=== PATIENT | male | born 1940 | race African-American/Black ===

== ENCOUNTER → 2019-01-16 13:46 | Day surgery (SDC) | payer MEDICARE, OTHER ==
[~2019-01-16 13:46] MED LIST: Buffered Lidocaine 1% SYRIN* 1 ML/SYRINGE INTRADERM ONE; Lactated Ringers 1000 ML Bag* 1,000 ML IV SCH; Lidocaine 1% INJ* 10 MG/ML 30 ML SDV ONE; Midazolam* 1 MG/ML 2 ML VIAL (2 MG) ONE; Naloxone* 0.4 MG/ML 1 ML VIAL IV PRN; ceFAZolin 2 GM in NS PREMIX(*) 2 GM/100 ML BAG IVPB ONE; fentaNYL* 50 MCG/ML 2 ML VIAL (100 MCG VIAL) ONE; hydrALAZINE IV* 20 MG/ML VIAL ONE
--- NOTE | 2019-01-16 17:48 | OP ---
Operative Report - Blank - Operative Report Date of Operation: 01/16/19 Note: Operative note: Preoperative Dx: multiple myleoma Postoperative Dx: multiple myleoma Procedure: powerport placement via right cephalic vein cut down Anesthesia: local with sedation Surgeon: Kimberly Assist: Curtis STARKEY EBL: minimal Specimen: none Fluids: 400mL LR Drains: none Findings: dictated
[2019-01-16 20:19] VITALS: BP 140/80
--- NOTE | 2019-01-17 00:04 | OP ---
CC: KARINA * DATE OF OPERATION: 01/16/19 - SDS DATE OF : 38 SURGEON: Ricardo Harris MD. ENTERTAINMENT MANAGER: THANH Christopher student. ANESTHESIOLOGIST: Rc Messina DO ANESTHESIA: Local MAC. PRE-OP DIAGNOSIS: Multiple myeloma. POST-OP DIAGNOSIS: Multiple myeloma. OPERATIVE PROCEDURE: PowerPort placement via right cephalic vein cut down. ESTIMATED BLOOD LOSS: Minimal. IV FLUIDS: Crystalloids. SPECIMEN: None. DRAINS: None. COMPLICATIONS: None. COUNTS: Instrument, needle, and sponge counts were correct. DESCRIPTION OF PROCEDURE: The patient was brought to the operative room and placed on the table supine. Sequential compression devices were placed on both lower extremities. He received appropriate intravenous antibiotics. Time-out was performed. Local anesthetic was infiltrated into the skin and soft tissue for a right subclavian approach. The patient's neck was flexed and he was kyphotic, therefore, it was possible to approach the IJ on either side. I attempted to cannulate the right subclavian two times, and ultimately decided to abort this in favor of right cephalic vein cut down. Local anesthetic was infiltrated into the area of the deltopectoral triangle and transverse incision was created and the Weitlaner retractor was placed. Sharp and blunt dissection was used to dissect out the cephalic vein and this was isolated with a 3-0 silk proximally and distally. The vessel was ligated distally and then proximally a venotomy was created transversely with an 11- blade scalpel and the 8- Pashto PowerPort was advanced into the vein and the tip of the catheter was positioned at the atriocaval junction and this was confirmed under fluoroscopy. The incision was extended further medially and subcutaneous pocket was created with cautery. The catheter was cut to approximately 25 cm, connected to the port, which was placed into the pocket and sutured to the underlying muscle with a 2-0 Prolene. The port was accessed, it javon and flushed easily. It was flushed with saline. The pocket was then closed in two layers with 3-0 Vicryl for the subcutaneous tissues and 4-0 Monocryl for the skin. DermaFlex was applied. The patient tolerated the procedure well and transferred to Recovery stable. Postprocedural x-ray was completed and this showed the catheter to be in good position. No evidence of pneumothorax. [id number] #: [id number] MTDD
== END | disposition home or self-care (01) ==
LOC: OR 13:46
PROVIDERS: ATTEND Surgery
DX: C90.00 Multiple myeloma not having achieved remission (principal); I10 Essential (primary) hypertension; I25.10 Atherosclerotic heart disease of native coronary artery without angina pectoris; G20 Parkinson's disease
CPT/HCPCS: 71045; 76000; C1788; J0360; J0690; J1642; J2250; J3010

== ENCOUNTER 2021-08-06 10:49 | Inpatient (IN) ==
[2021-08-06] MEDS ORDERED: NS 0.9% 1000 ml BAG 1,000 ML IV ONE ×2 (11:05→15:36)
[2021-08-06 11:59] LABS: Hematocrit 45 % (42-52); Hemoglobin 15.3 g/dL (14.0-18.0); Mean Corpuscular HGB Conc 34 g/dL (31-36); Mean Corpuscular Hemoglobin 32 pg (27-31); Mean Corpuscular Volume 95 fL (80-94); Mean Platelet Volume 8.5 fL (7.4-10.4); Platelet Count 174 10^3/uL (150-450); Red Blood Count 4.72 10^6 /uL (4.18-5.48); Red Cell Distribution Width 14 % (10-15)
[2021-08-06 12:18] LABS: ALT 11 U/L (7-52); Albumin 4.5 g/dL (3.2-5.2); Albumin/Globulin Ratio 1.7 (1-3); Alkaline Phosphatase 94 U/L (35-149); Blood Urea Nitrogen 44 mg/dL (6-24); CO2 Carbon Dioxide 22 mmol/L (22-32); Calcium 9.5 mg/dL (8.6-10.3); Chloride 104 mmol/L (101-111); Globulin 2.6 g/dL (2-4); Glucose 104 mg/dL (70-100); Magnesium 2.3 mg/dL (1.9-2.7); Sodium 141 mmol/L (135-145); Total Protein 7.1 g/dL (6.4-8.9)
[2021-08-06] MEDS ORDERED: Piperacillin/Tazobac ADVAN 3.375 GM in NS 0.9% 100 ml BAG 100 ML IV ONE ×2 (12:27→17:17)
[2021-08-06] MEDS ORDERED: Iodixanol (CONTRAST) 320 MG/ML 100 ML SDV IV ONE (12:29)
[2021-08-06 12:35] LABS: Anion Gap 15 mmol/L (2-11); Troponin I 0.11 ng/mL (<0.03)
[2021-08-06 12:37] LABS: ABS Lymphocytes 0.2 10^3/ul (1.0-4.8); ABS Monocytes 0.5 10^3/ul (0-0.8); ABS Neutrophils 5.3 10^3/ul (1.5-7.7); Eosinophil % 0.1 %; Lymphocyte % 2.9 %; RBC Morphology Normal (Normal)
[2021-08-06 12:52] LABS: TSH Ultra Thyroid Stim Horm 5.53 mcIU/mL (0.34-5.60)
[2021-08-06] MEDS: NS 0.9% 1000 ml BAG 1,500 ML IV SCH ×2 (13:26→15:11)
[2021-08-06] MEDS ORDERED: Lactated Ringers 1000 ml BAG 1,000 ML IV ONE (15:51)
[2021-08-06] MEDS ORDERED: Rocuronium 50 mg VIAL 10 mg/ml 5 ml VIAL (50 mg) ONE ×2 (16:24→20:05)
[2021-08-06] MEDS ORDERED: Succinylcholine 200 mg VIAL 20 mg/ml 10 ml VIAL (200 mg) ONE (16:25)
[2021-08-06] MEDS ORDERED: Propofol 10 mg/ml 100 ML BTL 100 ML ONE (16:26)
[2021-08-06] MEDS ORDERED: Norepinephrine 16MCG/ML BAG NS 4,000 MCG/250 ML BAG IV ONE (16:28)
[2021-08-06] MEDS ORDERED: Etomidate 40 mg/20 ml (2 MG/ML) 20 ml VIAL (40 mg) ONE (16:48)
[2021-08-06] MEDS ORDERED: Artificial Tear OPHTH.OINT 3.5 GM BOTH EYES PRN (17:16)
[2021-08-06] MEDS ORDERED: Zosyn per Pharmacy NOTE FOLLOW UP SCH (18:00)
[2021-08-06] MEDS ORDERED: ceFAZolin 2 GM PREMIX 2 GM/50 ML BAG ONE (19:35)
[2021-08-06] MEDS ORDERED: Albumin Human 5% 12.5 GM/250 ML BTL IV SCH (20:00)
[2021-08-06] MEDS ORDERED: Cisatracurium 2 MG/ML MDV 5 ML ONE (20:05)
[2021-08-06] MEDS ORDERED: fentaNYL 100 mcg/2 ml 50 MCG/ML VIAL ONE (20:41)
[2021-08-06 20:45] LABS: PCO2 Arterial 42 mmHg (35-45); PO2 Arterial 103 mmHg (80-100)
[2021-08-06] MEDS ORDERED: Sodium Bicarbonate 8.4% VIAL 1 MEQ/ML 50 ml VIAL (50 meq) ONE (20:54)
[2021-08-06] MEDS ORDERED: Calcium CHLORIDE 10% SYRINGE 1 GM/10 ML ONE (20:56)
[2021-08-06] MEDS ORDERED: Acetaminophen IV 1 GM/100ML 100 ML IV ONE (21:39)
[2021-08-06 21:49] LABS: PCO2 Arterial 29 mmHg (35-45); PO2 Arterial 113 mmHg (80-100)
[2021-08-07] MEDS: Norepinephrine 16MCG/ML BAG NS 4,000 MCG/250 ML BAG IV SCH ×3 (00:19→12:35)
[2021-08-07] MEDS: Propofol 10 mg/ml 100 ML BTL 100 ML IV SCH ×2 (00:19→17:17)
[2021-08-07 00:29] LABS: Hematocrit 43 % (42-52); Hemoglobin 14.7 g/dL (14.0-18.0); Mean Corpuscular HGB Conc 34 g/dL (31-36); Mean Corpuscular Hemoglobin 32 pg (27-31); Mean Corpuscular Volume 94 fL (80-94); Mean Platelet Volume 8.1 fL (7.4-10.4); Platelet Count 114 10^3/uL (150-450); Red Cell Distribution Width 14 % (10-15); White Blood Count 0.9 10^3/uL (3.5-10.8)
[2021-08-07] MEDS: ZOSYN 3.375 GM Q8H per EXTENDED INFUSION IV SCH ×4 (00:42→17:17)
[2021-08-07] MEDS: Pantoprazole VIAL 40 MG VIAL IV SCH ×2 (00:42→08:13)
[2021-08-07 00:45] LABS: AST 52 U/L (13-39); Anion Gap 8 mmol/L (2-11); Blood Urea Nitrogen 48 mg/dL (6-24); CO2 Carbon Dioxide 20 mmol/L (22-32); Calcium 8.6 mg/dL (8.6-10.3); Chloride 111 mmol/L (101-111); Glucose 69 mg/dL (70-100); Potassium 3.2 mmol/L (3.5-5.0); Sodium 139 mmol/L (135-145); eGFR CKD-EPI 33.1 (>60)
[2021-08-07 00:51] LABS: Troponin I 0.09 ng/mL (<0.03)
[2021-08-07 01:05] LABS: ABS Lymphocytes 0.3 10^3/ul (1.0-4.8); ABS Neutrophils 0.6 10^3/ul (1.5-7.7); Lymphocyte % 27.1 %; Nucleated Red Blood Cells % 0.2
[2021-08-07] MEDS: LACTATED RINGERS 1000 ML BAG IV SCH ×2 (01:17→11:04)
[2021-08-07] MEDS ORDERED: Dextrose 50% Syringe 50 ml 25 GM/50 ML SYRINGE IV PUSH PRN (01:31)
[2021-08-07] MEDS ORDERED: Dextrose 50% Syringe 50 ml 25 GM/50 ML SYRINGE ONE (01:48)
[2021-08-07] MEDS: Chlorhexidine MOUTHWASH 0.12% 15 ML UDC TOPICAL SCH ×6 (01:49→20:26)
[2021-08-07 06:33] LABS: Hematocrit 40 % (42-52); Hemoglobin 14.1 g/dL (14.0-18.0); Mean Corpuscular HGB Conc 35 g/dL (31-36); Mean Corpuscular Hemoglobin 33 pg (27-31); Mean Corpuscular Volume 94 fL (80-94); Mean Platelet Volume 7.9 fL (7.4-10.4); Platelet Count 112 10^3/uL (150-450); Red Blood Count 4.29 10^6 /uL (4.18-5.48); Red Cell Distribution Width 14 % (10-15); White Blood Count 1.1 10^3/uL (3.5-10.8)
[2021-08-07 06:41] LABS: ABS Lymphocytes 0.2 10^3/ul (1.0-4.8); ABS Neutrophils 0.8 10^3/ul (1.5-7.7); Eosinophil % 0.9 %; Lymphocyte % 19.2 %; Nucleated Red Blood Cells % 0.1
[2021-08-07 06:48] LABS: Calcium 8.4 mg/dL (8.6-10.3); Magnesium 1.8 mg/dL (1.9-2.7); Phosphorus 3.7 mg/dL (2.5-5.0); eGFR CKD-EPI 37.9 (>60)
[2021-08-07] MEDS: KCL 20 MEQ/100 ML IVPREMIX 20 MEQ/100 ML BAG IV SCH ×2 (08:13→10:30)
[2021-08-07] MEDS: D5LR 1000 ml BAG 1,000 ML IV SCH ×3 (12:07→22:36)
[2021-08-07] MEDS ORDERED: Magnesium Sulfate 2 gm BAG 2 GM/50 ML BAG IVPB ONE (12:39)
[2021-08-07] MEDS: Acetaminophen IV 1 GM/100ML 100 ML IV PRN ×2 (12:40→18:22)
[2021-08-07] MEDS ORDERED: Acetaminophen IV 1 GM/100ML 100 ML IV ONE (12:51)
[2021-08-07] MEDS ORDERED: fentaNYL 100 mcg/2 ml 50 MCG/ML VIAL IV SLOW PU PRN (13:00)
[2021-08-07] MEDS: PHENYLEPHRINE DRIP IVPREMIX 50 MG/250 ML BAG IV SCH ×3 (13:52→22:47)
[2021-08-07] MEDS: Heparin 5000 UNITS/ML 1 mL VIAL SUBCUT SCH ×2 (14:31→20:26)
[2021-08-07 15:51] LABS: Potassium 3.9 mmol/L (3.5-5.0); eGFR CKD-EPI 41.2 (>60)
[2021-08-07] MEDS ORDERED: Norepinephrine 16MCG/ML BAG NS 4,000 MCG/250 ML BAG IV SCH (18:00)
[2021-08-08] MEDS: Chlorhexidine MOUTHWASH 0.12% 15 ML UDC TOPICAL SCH ×6 (00:20→20:31)
[2021-08-08] MEDS: Acetaminophen IV 1 GM/100ML 100 ML IV PRN ×3 (00:20→20:31)
[2021-08-08] MEDS: ZOSYN 3.375 GM Q8H per EXTENDED INFUSION IV SCH ×3 (01:23→17:38)
[2021-08-08] MEDS: PHENYLEPHRINE DRIP IVPREMIX 50 MG/250 ML BAG IV SCH ×3 (03:03→23:39)
[2021-08-08 04:31] LABS: Magnesium 2.4 mg/dL (1.9-2.7); Phosphorus 2.8 mg/dL (2.5-5.0); Potassium 3.7 mmol/L (3.5-5.0)
[2021-08-08] MEDS: Heparin 5000 UNITS/ML 1 mL VIAL SUBCUT SCH ×3 (06:15→20:32)
[2021-08-08] MEDS: D5LR 1000 ml BAG 1,000 ML IV SCH ×2 (08:19→17:38)
[2021-08-08] MEDS: Pantoprazole VIAL 40 MG VIAL IV SCH (08:19)
[2021-08-08 08:27] LABS: Hematocrit 36 % (42-52); Hemoglobin 12.6 g/dL (14.0-18.0); Mean Corpuscular HGB Conc 35 g/dL (31-36); Mean Corpuscular Hemoglobin 33 pg (27-31); Mean Corpuscular Volume 94 fL (80-94); Mean Platelet Volume 8.9 fL (7.4-10.4); Platelet Count 105 10^3/uL (150-450); Red Blood Count 3.85 10^6 /uL (4.18-5.48); Red Cell Distribution Width 14 % (10-15); White Blood Count 6.9 10^3/uL (3.5-10.8)
[2021-08-08 09:46] LABS: RBC Morphology Normal (Normal)
[2021-08-08 09:47] LABS: ABS Lymphocytes 0.2 10^3/ul (1.0-4.8); ABS Monocytes 0.1 10^3/ul (0-0.8); ABS Neutrophils 6.5 10^3/ul (1.5-7.7); Lymphocyte % 3.2 %; Nucleated Red Blood Cells % 0.1
[2021-08-09] MEDS: ZOSYN 3.375 GM Q8H per EXTENDED INFUSION IV SCH ×3 (02:07→18:00)
[2021-08-09] MEDS: D5LR 1000 ml BAG 1,000 ML IV SCH ×2 (03:27→14:35)
[2021-08-09 04:18] LABS: Blood Urea Nitrogen 35 mg/dL (6-24); CO2 Carbon Dioxide 23 mmol/L (22-32); Calcium 8.2 mg/dL (8.6-10.3); Glucose 96 mg/dL (70-100); Sodium 143 mmol/L (135-145)
[2021-08-09 04:23] LABS: Chloride 117 mmol/L (101-111)
[2021-08-09] MEDS: Heparin 5000 UNITS/ML 1 mL VIAL SUBCUT SCH ×3 (04:25→22:43)
[2021-08-09 05:05] LABS: Magnesium 2.2 mg/dL (1.9-2.7); Potassium Redraw 3.1 mmol/L (3.5-5.0)
[2021-08-09 06:01] LABS: Anion Gap 3 mmol/L (2-11)
[2021-08-09] MEDS ORDERED: Potassium Phosphate IV 15 MMOLE in NS 0.9% 250 ml 250 ML IVPB ONE (08:03)
[2021-08-09] MEDS ORDERED: KCL 20 MEQ/100 ML IVPREMIX 20 MEQ/100 ML BAG IV ONE (08:03)
[2021-08-09] MEDS: Pantoprazole VIAL 40 MG VIAL IV SCH (08:33)
[2021-08-09] MEDS: Acetaminophen IV 1 GM/100ML 100 ML IV PRN (11:08)
[2021-08-09] MEDS ORDERED: PHENYLEPHRINE DRIP IVPREMIX 50 MG/250 ML BAG IV SCH (18:29)
[2021-08-10] MEDS: ZOSYN 3.375 GM Q8H per EXTENDED INFUSION IV SCH ×3 (02:15→17:19)
[2021-08-10 04:40] LABS: Phosphorus 1.5 mg/dL (2.5-5.0); Potassium 3.2 mmol/L (3.5-5.0); eGFR CKD-EPI 70.1 (>60)
[2021-08-10] MEDS: Heparin 5000 UNITS/ML 1 mL VIAL SUBCUT SCH ×3 (06:32→22:13)
[2021-08-10] MEDS ORDERED: Potassium Chlor 20 meq TAB.ER PO ONE (06:39)
[2021-08-10] MEDS ORDERED: Magnesium Sulfate 2 gm BAG 2 GM/50 ML BAG IVPB ONE (07:31)
[2021-08-10] MEDS: KCL 20 MEQ/100 ML IVPREMIX 20 MEQ/100 ML BAG IV SCH ×2 (08:03→10:24)
[2021-08-10] MEDS: Pantoprazole VIAL 40 MG VIAL IV SCH (08:03)
[2021-08-10] MEDS ORDERED: Potassium Phosphate IV 15 MMOLE in NS 0.9% 250 ml 250 ML IVPB ONE (08:08)
[2021-08-10] MEDS: Acetaminophen IV 1 GM/100ML 100 ML IV PRN ×2 (14:48→19:37)
[2021-08-10] MEDS ORDERED: Morphine 2 MG/ML SYRINGE IV PRN (23:12)
[2021-08-11] MEDS: ZOSYN 3.375 GM Q8H per EXTENDED INFUSION IV SCH ×3 (02:02→18:20)
[2021-08-11 04:40] LABS: Hematocrit 33 % (42-52); Hemoglobin 11.6 g/dL (14.0-18.0); Mean Corpuscular HGB Conc 35 g/dL (31-36); Mean Corpuscular Hemoglobin 32 pg (27-31); Mean Corpuscular Volume 92 fL (80-94); Mean Platelet Volume 7.7 fL (7.4-10.4); Platelet Count 84 10^3/uL (150-450); Red Blood Count 3.62 10^6 /uL (4.18-5.48); Red Cell Distribution Width 14 % (10-15); White Blood Count 6.6 10^3/uL (3.5-10.8)
[2021-08-11 04:43] LABS: Calcium 8.1 mg/dL (8.6-10.3); Magnesium 2.4 mg/dL (1.9-2.7); Phosphorus 2.5 mg/dL (2.5-5.0); Potassium 3.9 mmol/L (3.5-5.0); eGFR CKD-EPI 59.8 (>60)
[2021-08-11] MEDS: Heparin 5000 UNITS/ML 1 mL VIAL SUBCUT SCH (06:25)
[2021-08-11] MEDS: Pantoprazole VIAL 40 MG VIAL IV SCH (07:53)
[2021-08-11] MEDS ORDERED: Dextran 70/Hypromellose Tears Eye Drops 15 ml BTL (for Artificials Tears) BOTH EYES PRN (08:58)
[2021-08-11] MEDS ORDERED: D5W 1/2 NS 1000 ml BAG 1,000 ML IV SCH (10:00)
[2021-08-11 12:10] LABS: Urine Appearance Cloudy; Urine Bilirubin Negative (Negative); Urine Blood 2+ (Negative); Urine Color Yellow; Urine Glucose Negative (Negative); Urine Ketones Negative (Negative); Urine Nitrite Negative (Negative); Urine Protein 1+(30 mg/dL) (Negative); Urine Specific Gravity 1.026 (1.002-1.030); Urine Urobilinogen Negative (Negative)
[2021-08-11 12:21] LABS: Urine Amorphous Crystals Present (Absent); Urine Bacteria 1+ (Absent); Urine Red Blood Cell 3+(>10/hpf) (Absent); Urine Squamous Epithelial Cell Present (Absent); Urine White Blood Cell 1+(6-10/hpf) (Absent)
[2021-08-11 18:07] LABS: PCO2 Arterial 30 mmHg (35-45)
[2021-08-11 18:14] LABS: PO2 Arterial 55 mmHg (80-100)
[2021-08-12] MEDS: ZOSYN 3.375 GM Q8H per EXTENDED INFUSION IV SCH ×3 (03:38→18:30)
[2021-08-12 05:55] LABS: Calcium 7.6 mg/dL (8.6-10.3); Potassium 3.9 mmol/L (3.5-5.0)
[2021-08-12 05:59] LABS: Hematocrit 32 % (42-52); Hemoglobin 11.2 g/dL (14.0-18.0); Mean Corpuscular HGB Conc 35 g/dL (31-36); Mean Corpuscular Hemoglobin 33 pg (27-31); Mean Corpuscular Volume 94 fL (80-94); Mean Platelet Volume 8.4 fL (7.4-10.4); Platelet Count 84 10^3/uL (150-450); Red Blood Count 3.44 10^6 /uL (4.18-5.48); Red Cell Distribution Width 14 % (10-15); White Blood Count 9.2 10^3/uL (3.5-10.8)
[2021-08-12 06:00] LABS: eGFR CKD-EPI 53.9 (>60)
[2021-08-12 07:04] LABS: ABS Lymphocytes 0.5 10^3/ul (1.0-4.8); ABS Monocytes 0.2 10^3/ul (0-0.8); ABS Neutrophils 8.4 10^3/ul (1.5-7.7); Eosinophil % 0.1 %; Lymphocyte % 5.4 %; Nucleated Red Blood Cells % 0.2
[2021-08-12] MEDS ORDERED: Aspirin EC 81 mg TAB.EC (enteric coated) PO SCH (09:00)
[2021-08-12] MEDS ORDERED: Furosemide 40 mg/4 ml IV VIAL IV SLOW PU ONE (09:09)
[2021-08-12] MEDS: Pantoprazole VIAL 40 MG VIAL IV SCH (10:00)
[2021-08-12] MEDS: Linezolid 600 MG IVPREMIX(*) 600 MG/300 ML BAG IVPB SCH ×2 (10:06→20:16)
[2021-08-12] MEDS: Latanoprost 0.005% 2.5 ml BTL BOTH EYES SCH (22:34)
[2021-08-13] MEDS: ZOSYN 3.375 GM Q8H per EXTENDED INFUSION IV SCH ×3 (01:59→18:08)
[2021-08-13 04:42] LABS: Calcium 7.7 mg/dL (8.6-10.3); Magnesium 2.2 mg/dL (1.9-2.7); Phosphorus 2.5 mg/dL (2.5-5.0); Potassium 3.6 mmol/L (3.5-5.0); eGFR CKD-EPI 47.3 (>60)
[2021-08-13 04:43] LABS: Hematocrit 30 % (42-52); Hemoglobin 10.3 g/dL (14.0-18.0); Mean Corpuscular HGB Conc 34 g/dL (31-36); Mean Corpuscular Hemoglobin 32 pg (27-31); Mean Corpuscular Volume 93 fL (80-94); Mean Platelet Volume 8.3 fL (7.4-10.4); Platelet Count 98 10^3/uL (150-450); Red Blood Count 3.22 10^6 /uL (4.18-5.48); Red Cell Distribution Width 14 % (10-15); White Blood Count 8.4 10^3/uL (3.5-10.8)
[2021-08-13] MEDS ORDERED: Potassium Chloride LIQUID 20 MEQ/15 ML LIQUID PO ONE (05:21)
[2021-08-13] MEDS: Pantoprazole VIAL 40 MG VIAL IV SCH (07:22)
[2021-08-13] MEDS ORDERED: KCL 10 MEQ/50 ML IVPREMIX 10 MEQ/50 ML BAG IV ONE (08:09)
[2021-08-13] MEDS: Acetaminophen IV 1 GM/100ML 100 ML IV PRN (08:22)
[2021-08-13] MEDS ORDERED: Furosemide 40 mg/4 ml IV VIAL IV SLOW PU ONE (10:00)
[2021-08-13] MEDS: ROTIGOTINE 2 MG/24 HR TOPICAL SCH (10:14)
[2021-08-13] MEDS: Linezolid 600 MG IVPREMIX(*) 600 MG/300 ML BAG IVPB SCH ×2 (10:53→21:31)
[2021-08-13] MEDS ORDERED: Succinylcholine 200 mg VIAL 20 mg/ml 10 ml VIAL (200 mg) ONE (11:24)
[2021-08-13] MEDS ORDERED: Propofol 10 mg/ml 100 ML BTL 100 ML ONE (11:24)
[2021-08-13] MEDS ORDERED: Propofol 10 MG/ML 20 ML BTL ONE (11:31)
[2021-08-13] MEDS ORDERED: Acetylcysteine INH SOL (RT) 200 MG/ML 4 ML VIAL INH ONE (11:57)
[2021-08-13] MEDS ORDERED: Propofol 10 mg/ml 100 ML BTL 100 ML IV SCH ×2 (14:00→14:03)
[2021-08-13] MEDS: Chlorhexidine MOUTHWASH 0.12% 15 ML UDC TOPICAL SCH ×3 (15:18→21:41)
[2021-08-13] MEDS: Latanoprost 0.005% 2.5 ml BTL BOTH EYES SCH (21:31)
[2021-08-14] MEDS: Chlorhexidine MOUTHWASH 0.12% 15 ML UDC TOPICAL SCH ×6 (03:42→22:21)
[2021-08-14 04:25] LABS: Hematocrit 28 % (42-52); Hemoglobin 9.8 g/dL (14.0-18.0); Mean Corpuscular HGB Conc 35 g/dL (31-36); Mean Corpuscular Hemoglobin 32 pg (27-31); Mean Corpuscular Volume 94 fL (80-94); Mean Platelet Volume 8.3 fL (7.4-10.4); Platelet Count 128 10^3/uL (150-450); Red Blood Count 3.02 10^6 /uL (4.18-5.48); Red Cell Distribution Width 14 % (10-15); White Blood Count 7.6 10^3/uL (3.5-10.8)
[2021-08-14 04:35] LABS: ABS Eosinophils 0.1 10^3/ul (0-0.6); ABS Lymphocytes 0.7 10^3/ul (1.0-4.8); ABS Monocytes 0.3 10^3/ul (0-0.8); ABS Neutrophils 6.5 10^3/ul (1.5-7.7); Eosinophil % 0.7 %; Lymphocyte % 9.5 %
[2021-08-14 04:42] LABS: Calcium 7.6 mg/dL (8.6-10.3); Magnesium 2.1 mg/dL (1.9-2.7); Potassium 3.4 mmol/L (3.5-5.0); eGFR CKD-EPI 45.8 (>60)
[2021-08-14] MEDS ORDERED: Potassium Chloride LIQUID 20 MEQ/15 ML LIQUID PO ONE (05:27)
[2021-08-14] MEDS: Pantoprazole VIAL 40 MG VIAL IV SCH (07:41)
[2021-08-14] MEDS: ROTIGOTINE 2 MG/24 HR TOPICAL SCH (07:42)
[2021-08-14] MEDS ORDERED: Dexmedetomidine 1,000 MCG in NS 0.9% 250 ml 240 ML IV SCH (09:00)
[2021-08-14] MEDS: Linezolid 600 MG IVPREMIX(*) 600 MG/300 ML BAG IVPB SCH ×2 (10:30→20:53)
[2021-08-14] MEDS: Acetaminophen IV 1 GM/100ML 100 ML IV PRN (17:13)
[2021-08-14] MEDS: Latanoprost 0.005% 2.5 ml BTL BOTH EYES SCH (20:19)
[2021-08-15] MEDS: Chlorhexidine MOUTHWASH 0.12% 15 ML UDC TOPICAL SCH ×6 (02:10→21:27)
[2021-08-15 04:13] LABS: Hematocrit 31 % (42-52); Hemoglobin 10.6 g/dL (14.0-18.0); Mean Corpuscular HGB Conc 34 g/dL (31-36); Mean Corpuscular Hemoglobin 32 pg (27-31); Mean Corpuscular Volume 93 fL (80-94); Mean Platelet Volume 8.3 fL (7.4-10.4); Platelet Count 187 10^3/uL (150-450); Red Blood Count 3.31 10^6 /uL (4.18-5.48); Red Cell Distribution Width 14 % (10-15); White Blood Count 9.2 10^3/uL (3.5-10.8)
[2021-08-15 04:28] LABS: Calcium 7.6 mg/dL (8.6-10.3); Magnesium 2.1 mg/dL (1.9-2.7); Phosphorus 2.4 mg/dL (2.5-5.0); Potassium 3.5 mmol/L (3.5-5.0); eGFR CKD-EPI 48.1 (>60)
[2021-08-15] MEDS ORDERED: KCL 20 MEQ/100 ML IVPREMIX 20 MEQ/100 ML BAG IV ONE (07:57)
[2021-08-15] MEDS: ROTIGOTINE 2 MG/24 HR TOPICAL SCH (08:18)
[2021-08-15] MEDS: Linezolid 600 MG IVPREMIX(*) 600 MG/300 ML BAG IVPB SCH ×2 (08:27→21:28)
[2021-08-15] MEDS: Pantoprazole VIAL 40 MG VIAL IV SCH (08:27)
[2021-08-15] MEDS ORDERED: Potassium Phosphate IV 10 MMOLE in NS 0.9% 250 ml 250 ML IVPB ONE (09:00)
[2021-08-15] MEDS: metroNIDAZOLE IV 500 MG/100ML 500 MG/100 ML BAG IVPB SCH ×2 (12:43→20:05)
[2021-08-15] MEDS: Latanoprost 0.005% 2.5 ml BTL BOTH EYES SCH (20:05)
[2021-08-16] MEDS: metroNIDAZOLE IV 500 MG/100ML 500 MG/100 ML BAG IVPB SCH ×3 (02:57→20:29)
[2021-08-16] MEDS: Chlorhexidine MOUTHWASH 0.12% 15 ML UDC TOPICAL SCH ×5 (02:57→20:29)
[2021-08-16 04:11] LABS: ABS Eosinophils 0.1 10^3/ul (0-0.6); ABS Lymphocytes 0.6 10^3/ul (1.0-4.8); ABS Monocytes 0.3 10^3/ul (0-0.8); ABS Neutrophils 5.6 10^3/ul (1.5-7.7); Eosinophil % 0.8 %; Hematocrit 29 % (42-52); Hemoglobin 9.9 g/dL (14.0-18.0); Lymphocyte % 9.1 %; Mean Corpuscular HGB Conc 34 g/dL (31-36); Mean Corpuscular Hemoglobin 32 pg (27-31); Mean Corpuscular Volume 93 fL (80-94); Mean Platelet Volume 8.1 fL (7.4-10.4); Platelet Count 200 10^3/uL (150-450); Red Blood Count 3.12 10^6 /uL (4.18-5.48); Red Cell Distribution Width 14 % (10-15); White Blood Count 6.5 10^3/uL (3.5-10.8)
[2021-08-16 04:27] LABS: Calcium 7.2 mg/dL (8.6-10.3); Magnesium 2.2 mg/dL (1.9-2.7); Potassium 3.5 mmol/L (3.5-5.0); eGFR CKD-EPI 44.4 (>60)
[2021-08-16] MEDS: ROTIGOTINE 2 MG/24 HR TOPICAL SCH (07:49)
[2021-08-16] MEDS: Pantoprazole VIAL 40 MG VIAL IV SCH (07:50)
[2021-08-16] MEDS: Linezolid 600 MG IVPREMIX(*) 600 MG/300 ML BAG IVPB SCH (08:42)
[2021-08-16] MEDS ORDERED: Lactated Ringers 1000 ml BAG 1,000 ML IV SCH (11:00)
[2021-08-16] MEDS: Latanoprost 0.005% 2.5 ml BTL BOTH EYES SCH (20:29)
[2021-08-17] MEDS: Chlorhexidine MOUTHWASH 0.12% 15 ML UDC TOPICAL SCH ×7 (00:36→23:00)
[2021-08-17] MEDS: metroNIDAZOLE IV 500 MG/100ML 500 MG/100 ML BAG IVPB SCH (03:31)
[2021-08-17 04:54] LABS: ABS Lymphocytes 0.6 10^3/ul (1.0-4.8); ABS Monocytes 0.3 10^3/ul (0-0.8); ABS Neutrophils 4.9 10^3/ul (1.5-7.7); Eosinophil % 0.8 %; Hematocrit 27 % (42-52); Hemoglobin 9.2 g/dL (14.0-18.0); Lymphocyte % 9.7 %; Mean Corpuscular HGB Conc 34 g/dL (31-36); Mean Corpuscular Hemoglobin 32 pg (27-31); Mean Corpuscular Volume 93 fL (80-94); Mean Platelet Volume 7.9 fL (7.4-10.4); Nucleated Red Blood Cells % 0.1; Platelet Count 202 10^3/uL (150-450); Red Blood Count 2.91 10^6 /uL (4.18-5.48); Red Cell Distribution Width 14 % (10-15); White Blood Count 5.8 10^3/uL (3.5-10.8)
[2021-08-17 05:32] LABS: Calcium 7.2 mg/dL (8.6-10.3); Magnesium 2.1 mg/dL (1.9-2.7); Phosphorus 2.7 mg/dL (2.5-5.0); Potassium 3.2 mmol/L (3.5-5.0); eGFR CKD-EPI 51.5 (>60)
[2021-08-17] MEDS: KCL 20 MEQ/100 ML IVPREMIX 20 MEQ/100 ML BAG IV SCH ×2 (06:15→08:21)
[2021-08-17] MEDS: Pantoprazole VIAL 40 MG VIAL IV SCH (08:21)
[2021-08-17] MEDS: ROTIGOTINE 2 MG/24 HR TOPICAL SCH (08:22)
[2021-08-17] MEDS: Latanoprost 0.005% 2.5 ml BTL BOTH EYES SCH (20:50)
[2021-08-18 04:20] LABS: ABS Lymphocytes 0.6 10^3/ul (1.0-4.8); ABS Monocytes 0.2 10^3/ul (0-0.8); ABS Neutrophils 4.2 10^3/ul (1.5-7.7); Eosinophil % 0.8 %; Hematocrit 27 % (42-52); Hemoglobin 9.5 g/dL (14.0-18.0); Lymphocyte % 11.4 %; Mean Corpuscular HGB Conc 35 g/dL (31-36); Mean Corpuscular Hemoglobin 33 pg (27-31); Mean Corpuscular Volume 92 fL (80-94); Mean Platelet Volume 7.4 fL (7.4-10.4); Nucleated Red Blood Cells % 0.1; Platelet Count 240 10^3/uL (150-450); Red Blood Count 2.93 10^6 /uL (4.18-5.48); Red Cell Distribution Width 14 % (10-15); White Blood Count 5.1 10^3/uL (3.5-10.8)
[2021-08-18] MEDS: Chlorhexidine MOUTHWASH 0.12% 15 ML UDC TOPICAL SCH ×6 (04:22→23:00)
[2021-08-18 04:36] LABS: Calcium 7.3 mg/dL (8.6-10.3); Magnesium 2.1 mg/dL (1.9-2.7); Phosphorus 2.1 mg/dL (2.5-5.0); eGFR CKD-EPI 59.8 (>60)
[2021-08-18] MEDS: KCL 20 MEQ/100 ML IVPREMIX 20 MEQ/100 ML BAG IV SCH ×3 (05:55→11:39)
[2021-08-18] MEDS: Pantoprazole VIAL 40 MG VIAL IV SCH (08:39)
[2021-08-18] MEDS: ROTIGOTINE 2 MG/24 HR TOPICAL SCH (08:46)
[2021-08-18] MEDS: Latanoprost 0.005% 2.5 ml BTL BOTH EYES SCH (20:15)
[2021-08-19] MEDS: Chlorhexidine MOUTHWASH 0.12% 15 ML UDC TOPICAL SCH ×3 (03:26→12:48)
[2021-08-19 04:23] LABS: ABS Lymphocytes 0.5 10^3/ul (1.0-4.8); ABS Monocytes 0.4 10^3/ul (0-0.8); ABS Neutrophils 4.5 10^3/ul (1.5-7.7); Eosinophil % 0.5 %; Hematocrit 27 % (42-52); Hemoglobin 9.4 g/dL (14.0-18.0); Mean Corpuscular HGB Conc 34 g/dL (31-36); Mean Corpuscular Hemoglobin 32 pg (27-31); Mean Corpuscular Volume 92 fL (80-94); Mean Platelet Volume 7.5 fL (7.4-10.4); Nucleated Red Blood Cells % 0.3; Platelet Count 291 10^3/uL (150-450); Red Blood Count 2.96 10^6 /uL (4.18-5.48); Red Cell Distribution Width 14 % (10-15); White Blood Count 5.4 10^3/uL (3.5-10.8)
[2021-08-19 04:40] LABS: Calcium 7.2 mg/dL (8.6-10.3); Phosphorus 1.5 mg/dL (2.5-5.0); Potassium 3.3 mmol/L (3.5-5.0); eGFR CKD-EPI 55.4 (>60)
[2021-08-19] MEDS: KCL 20 MEQ/100 ML IVPREMIX 20 MEQ/100 ML BAG IV SCH ×3 (06:26→11:35)
[2021-08-19] MEDS: Pantoprazole VIAL 40 MG VIAL IV SCH (07:32)
[2021-08-19] MEDS: ROTIGOTINE 2 MG/24 HR TOPICAL SCH (08:53)
[2021-08-19] MEDS ORDERED: Potassium Phosphate IV 15 MMOLE in NS 0.9% 250 ml 250 ML IVPB ONE (09:00)
[2021-08-19] MEDS: Latanoprost 0.005% 2.5 ml BTL BOTH EYES SCH (20:14)
[2021-08-20 05:23] LABS: Calcium 7.5 mg/dL (8.6-10.3); Potassium 3.7 mmol/L (3.5-5.0); eGFR CKD-EPI 72.5 (>60)
[2021-08-20] MEDS: Pantoprazole VIAL 40 MG VIAL IV SCH (09:25)
[2021-08-20] MEDS ORDERED: Potassium Phosphate IV 15 MMOLE in NS 0.9% 250 ml 250 ML IVPB ONE (10:24)
[2021-08-20] MEDS: Latanoprost 0.005% 2.5 ml BTL BOTH EYES SCH (20:53)
[2021-08-21 04:59] LABS: Calcium 7.7 mg/dL (8.6-10.3); Magnesium 1.9 mg/dL (1.9-2.7); Phosphorus 2.2 mg/dL (2.5-5.0); eGFR CKD-EPI 74.3 (>60)
[2021-08-21] MEDS ORDERED: Sodium Phosphate IV 15 MMOLE in NS 0.9% 250 ml 250 ML IV ONE (07:30)
[2021-08-21] MEDS: Pantoprazole VIAL 40 MG VIAL IV SCH (09:32)
[2021-08-21] MEDS: Latanoprost 0.005% 2.5 ml BTL BOTH EYES SCH (22:35)
[2021-08-22 06:13] LABS: Calcium 7.7 mg/dL (8.6-10.3); Magnesium 1.8 mg/dL (1.9-2.7); Phosphorus 2.7 mg/dL (2.5-5.0); Potassium 4.1 mmol/L (3.5-5.0); eGFR CKD-EPI 75.1 (>60)
[2021-08-22] MEDS: Pantoprazole VIAL 40 MG VIAL IV SCH (09:16)
[2021-08-22] MEDS: Latanoprost 0.005% 2.5 ml BTL BOTH EYES SCH (21:44)
[2021-08-23 05:28] LABS: Calcium 7.7 mg/dL (8.6-10.3); Magnesium 1.8 mg/dL (1.9-2.7); Phosphorus 2.7 mg/dL (2.5-5.0); Potassium 4.4 mmol/L (3.5-5.0); eGFR CKD-EPI 80.9 (>60)
[2021-08-23] MEDS ORDERED: Magnesium Sulfate IV 1GM/100ML 1 GM/100 ML BAG IV ONE ×2 (07:42→13:02)
[2021-08-23] MEDS: Pantoprazole VIAL 40 MG VIAL IV SCH (09:29)
[2021-08-23] MEDS: Latanoprost 0.005% 2.5 ml BTL BOTH EYES SCH (21:28)
[2021-08-24 05:29] LABS: Calcium 7.7 mg/dL (8.6-10.3); Phosphorus 2.6 mg/dL (2.5-5.0); Potassium 4.5 mmol/L (3.5-5.0); eGFR CKD-EPI 87.1 (>60)
[2021-08-24] MEDS: Pantoprazole VIAL 40 MG VIAL IV SCH (09:56)
[2021-08-24] MEDS: Latanoprost 0.005% 2.5 ml BTL BOTH EYES SCH (21:14)
[2021-08-25 05:58] LABS: ABS Eosinophils 0.1 10^3/ul (0-0.6); ABS Lymphocytes 0.9 10^3/ul (1.0-4.8); ABS Monocytes 0.6 10^3/ul (0-0.8); ABS Neutrophils 3.9 10^3/ul (1.5-7.7); Eosinophil % 2.7 %; Hematocrit 31 % (42-52); Hemoglobin 10.5 g/dL (14.0-18.0); Mean Corpuscular HGB Conc 34 g/dL (31-36); Mean Corpuscular Hemoglobin 31 pg (27-31); Mean Corpuscular Volume 93 fL (80-94); Mean Platelet Volume 6.9 fL (7.4-10.4); Nucleated Red Blood Cells % 0.2; Platelet Count 360 10^3/uL (150-450); Red Blood Count 3.36 10^6 /uL (4.18-5.48); Red Cell Distribution Width 14 % (10-15); White Blood Count 5.5 10^3/uL (3.5-10.8)
[2021-08-25 06:13] LABS: Magnesium 1.9 mg/dL (1.9-2.7); Potassium 4.6 mmol/L (3.5-5.0); eGFR CKD-EPI 87.4 (>60)
[2021-08-25] MEDS: Pantoprazole VIAL 40 MG VIAL IV SCH (10:11)
[2021-08-25] MEDS: Latanoprost 0.005% 2.5 ml BTL BOTH EYES SCH (21:10)
[2021-08-26] MEDS: Pantoprazole VIAL 40 MG VIAL IV SCH (09:26)
[2021-08-26] MEDS: Latanoprost 0.005% 2.5 ml BTL BOTH EYES SCH (21:18)
[2021-08-27] MEDS: Pantoprazole VIAL 40 MG VIAL IV SCH (08:40)
[2021-08-27] MEDS ORDERED: Iohexol 300 (CONTRAST) 10 ML SDV IV ONE (10:52)
[2021-08-27] MEDS: Latanoprost 0.005% 2.5 ml BTL BOTH EYES SCH (20:18)
[2021-08-28 05:56] LABS: ABS Eosinophils 0.1 10^3/ul (0-0.6); ABS Lymphocytes 0.5 10^3/ul (1.0-4.8); ABS Monocytes 0.5 10^3/ul (0-0.8); ABS Neutrophils 4.8 10^3/ul (1.5-7.7); Eosinophil % 1.5 %; Hematocrit 28 % (42-52); Hemoglobin 9.6 g/dL (14.0-18.0); Lymphocyte % 8.3 %; Mean Corpuscular HGB Conc 34 g/dL (31-36); Mean Corpuscular Hemoglobin 32 pg (27-31); Mean Corpuscular Volume 93 fL (80-94); Mean Platelet Volume 7.2 fL (7.4-10.4); Nucleated Red Blood Cells % 0.1; Platelet Count 273 10^3/uL (150-450); Red Blood Count 3.01 10^6 /uL (4.18-5.48); Red Cell Distribution Width 15 % (10-15); White Blood Count 5.9 10^3/uL (3.5-10.8)
[2021-08-28 06:13] LABS: Albumin 2.6 g/dL (3.2-5.2); Albumin/Globulin Ratio 0.9 (1-3); C Reactive Protein 3.68 mg/L (<8.01); Calcium 7.7 mg/dL (8.6-10.3); Globulin 2.9 g/dL (2-4); Magnesium 1.7 mg/dL (1.9-2.7); Potassium 4.3 mmol/L (3.5-5.0); Total Bilirubin 0.3 mg/dL (0.2-1.0); Total Protein 5.5 g/dL (6.4-8.9)
[2021-08-28] MEDS ORDERED: Magnesium Sulfate IV 3 GM in NS 0.9% 100 ml BAG 100 ML IVPB ONE (07:03)
[2021-08-28] MEDS ORDERED: Magnesium Sulfate 2 GM IV (Premix) IVPB ONE (08:00)
[2021-08-28] MEDS ORDERED: Magnesium Sulfate 1 GM IV 1 GM/100 ML BAG IV ONE (09:00)
[2021-08-28] MEDS: Pantoprazole VIAL 40 MG VIAL IV SCH (09:45)
[2021-08-28] MEDS: Latanoprost 0.005% 2.5 ml BTL BOTH EYES SCH (20:01)
[2021-08-29 05:13] LABS: ABS Eosinophils 0.1 10^3/ul (0-0.6); ABS Lymphocytes 0.6 10^3/ul (1.0-4.8); ABS Monocytes 0.6 10^3/ul (0-0.8); Hematocrit 28 % (42-52); Hemoglobin 9.8 g/dL (14.0-18.0); Lymphocyte % 10.2 %; Mean Corpuscular HGB Conc 35 g/dL (31-36); Mean Corpuscular Hemoglobin 32 pg (27-31); Mean Corpuscular Volume 93 fL (80-94); Mean Platelet Volume 7.1 fL (7.4-10.4); Platelet Count 258 10^3/uL (150-450); Red Blood Count 3.05 10^6 /uL (4.18-5.48); Red Cell Distribution Width 15 % (10-15); White Blood Count 6.3 10^3/uL (3.5-10.8)
[2021-08-29 05:29] LABS: Albumin 2.7 g/dL (3.2-5.2); Albumin/Globulin Ratio 0.9 (1-3); Calcium 7.6 mg/dL (8.6-10.3); Globulin 3.1 g/dL (2-4); Magnesium 2.2 mg/dL (1.9-2.7); Total Bilirubin 0.3 mg/dL (0.2-1.0); Total Protein 5.8 g/dL (6.4-8.9); eGFR CKD-EPI 90.1 (>60)
[2021-08-29] MEDS: Pantoprazole VIAL 40 MG VIAL IV SCH (09:33)
[2021-08-29] MEDS: Latanoprost 0.005% 2.5 ml BTL BOTH EYES SCH (19:58)
[2021-08-30] MEDS: Pantoprazole VIAL 40 MG VIAL IV SCH (07:57)
[2021-08-30] MEDS: Latanoprost 0.005% 2.5 ml BTL BOTH EYES SCH (20:58)
[2021-08-31 05:47] LABS: ABS Eosinophils 0.1 10^3/ul (0-0.6); ABS Lymphocytes 0.8 10^3/ul (1.0-4.8); ABS Monocytes 0.6 10^3/ul (0-0.8); Eosinophil % 1.7 %; Hematocrit 29 % (42-52); Hemoglobin 9.9 g/dL (14.0-18.0); Lymphocyte % 14.1 %; Mean Corpuscular HGB Conc 34 g/dL (31-36); Mean Corpuscular Hemoglobin 31 pg (27-31); Mean Corpuscular Volume 93 fL (80-94); Mean Platelet Volume 7.2 fL (7.4-10.4); Nucleated Red Blood Cells % 0.1; Platelet Count 219 10^3/uL (150-450); Red Blood Count 3.16 10^6 /uL (4.18-5.48); Red Cell Distribution Width 15 % (10-15); White Blood Count 5.5 10^3/uL (3.5-10.8)
[2021-08-31 05:56] LABS: INR 1.21 (0.86-1.15)
[2021-08-31 06:10] LABS: Albumin 2.7 g/dL (3.2-5.2); Albumin/Globulin Ratio 0.9 (1-3); Calcium 7.8 mg/dL (8.6-10.3); Magnesium 1.8 mg/dL (1.9-2.7); Total Bilirubin 0.3 mg/dL (0.2-1.0); Total Protein 5.7 g/dL (6.4-8.9); eGFR CKD-EPI 97.4 (>60)
[2021-08-31] MEDS ORDERED: Magnesium Sulfate 2 gm BAG 2 GM/50 ML BAG IVPB ONE (06:40)
[2021-08-31] MEDS: Pantoprazole VIAL 40 MG VIAL IV SCH (08:53)
[2021-08-31 13:15] LABS: Ferritin 69.4 ng/mL (24-336)
[2021-08-31] MEDS: Latanoprost 0.005% 2.5 ml BTL BOTH EYES SCH (21:53)
[2021-09-01 06:34] LABS: Albumin 2.8 g/dL (3.2-5.2); Albumin/Globulin Ratio 0.9 (1-3); Calcium 7.8 mg/dL (8.6-10.3); Globulin 3.1 g/dL (2-4); Potassium 4.3 mmol/L (3.5-5.0); Total Bilirubin 0.2 mg/dL (0.2-1.0); Total Protein 5.9 g/dL (6.4-8.9); eGFR CKD-EPI 97.4 (>60)
[2021-09-01 06:52] LABS: Hematocrit 30 % (42-52); Hemoglobin 10.2 g/dL (14.0-18.0); Mean Corpuscular HGB Conc 34 g/dL (31-36); Mean Corpuscular Hemoglobin 32 pg (27-31); Mean Corpuscular Volume 94 fL (80-94); Mean Platelet Volume 7.6 fL (7.4-10.4); Platelet Count 218 10^3/uL (150-450); Red Blood Count 3.21 10^6 /uL (4.18-5.48); Red Cell Distribution Width 15 % (10-15); White Blood Count 6.7 10^3/uL (3.5-10.8)
[2021-09-01] MEDS: Pantoprazole VIAL 40 MG VIAL IV SCH (10:23)
[2021-09-01] MEDS: Latanoprost 0.005% 2.5 ml BTL BOTH EYES SCH (20:01)
[2021-09-02] MEDS: Pantoprazole VIAL 40 MG VIAL IV SCH (08:56)
[2021-09-02 14:06] LABS: INR 1.19 (0.86-1.15)
[2021-09-02] MEDS: Latanoprost 0.005% 2.5 ml BTL BOTH EYES SCH (21:52)
[2021-09-03 05:24] LABS: ABS Eosinophils 0.1 10^3/ul (0-0.6); ABS Lymphocytes 0.7 10^3/ul (1.0-4.8); ABS Monocytes 0.5 10^3/ul (0-0.8); ABS Neutrophils 6.3 10^3/ul (1.5-7.7); Eosinophil % 1.3 %; Hematocrit 29 % (42-52); Hemoglobin 9.9 g/dL (14.0-18.0); Mean Corpuscular HGB Conc 34 g/dL (31-36); Mean Corpuscular Hemoglobin 32 pg (27-31); Mean Corpuscular Volume 93 fL (80-94); Mean Platelet Volume 7.2 fL (7.4-10.4); Platelet Count 185 10^3/uL (150-450); Red Blood Count 3.14 10^6 /uL (4.18-5.48); Red Cell Distribution Width 15 % (10-15); White Blood Count 7.6 10^3/uL (3.5-10.8)
[2021-09-03 05:39] LABS: Potassium 4.2 mmol/L (3.5-5.0); eGFR CKD-EPI 98.9 (>60)
[2021-09-03 07:49] LABS: Magnesium 1.8 mg/dL (1.9-2.7)
[2021-09-03] MEDS ORDERED: Magnesium Sulfate 2 gm BAG 2 GM/50 ML BAG IVPB ONE (07:54)
[2021-09-03] MEDS ORDERED: fentaNYL 100 mcg/2 ml 50 MCG/ML VIAL ONE (10:26)
[2021-09-03] MEDS ORDERED: ceFAZolin 1 GM ADVAN 1 GM ADDV.VIAL IVPB ONE (11:15)
[2021-09-03] MEDS ORDERED: Lactated Ringers 1000 ml BAG 1,000 ML IV SCH (14:00)
[2021-09-03] MEDS: Latanoprost 0.005% 2.5 ml BTL BOTH EYES SCH (21:40)
[2021-09-04] MEDS: Latanoprost 0.005% 2.5 ml BTL BOTH EYES SCH (22:16)
[2021-09-05 06:28] LABS: Hematocrit 30 % (42-52); Hemoglobin 10.1 g/dL (14.0-18.0); Mean Corpuscular HGB Conc 34 g/dL (31-36); Mean Corpuscular Hemoglobin 31 pg (27-31); Mean Corpuscular Volume 93 fL (80-94); Mean Platelet Volume 7.5 fL (7.4-10.4); Platelet Count 181 10^3/uL (150-450); Red Blood Count 3.25 10^6 /uL (4.18-5.48); Red Cell Distribution Width 15 % (10-15); White Blood Count 5.2 10^3/uL (3.5-10.8)
[2021-09-05 06:44] LABS: Magnesium 1.8 mg/dL (1.9-2.7); Phosphorus 2.3 mg/dL (2.5-5.0); Potassium 4.2 mmol/L (3.5-5.0); eGFR CKD-EPI 98.9 (>60)
[2021-09-05] MEDS: Potassium & Sodium Phos 250 mg = 1 PACKET G TUBE SCH ×2 (09:51→21:04)
[2021-09-05] MEDS: Latanoprost 0.005% 2.5 ml BTL BOTH EYES SCH (21:04)
[2021-09-06 06:44] LABS: Calcium 7.8 mg/dL (8.6-10.3); Magnesium 1.7 mg/dL (1.9-2.7); Potassium 4.3 mmol/L (3.5-5.0); eGFR CKD-EPI 97.4 (>60)
[2021-09-06 07:37] LABS: ABS Lymphocytes 0.5 10^3/ul (1.0-4.8); ABS Monocytes 0.4 10^3/ul (0-0.8); ABS Neutrophils 2.9 10^3/ul (1.5-7.7); Eosinophil % 0.2 %; Hematocrit 27 % (42-52); Hemoglobin 9.1 g/dL (14.0-18.0); Lymphocyte % 12.8 %; Mean Corpuscular HGB Conc 34 g/dL (31-36); Mean Corpuscular Hemoglobin 32 pg (27-31); Mean Corpuscular Volume 93 fL (80-94); Mean Platelet Volume 6.8 fL (7.4-10.4); Platelet Count 156 10^3/uL (150-450); Red Blood Count 2.89 10^6 /uL (4.18-5.48); Red Cell Distribution Width 15 % (10-15); White Blood Count 3.7 10^3/uL (3.5-10.8)
[2021-09-06] MEDS: Potassium & Sodium Phos 250 mg = 1 PACKET G TUBE SCH ×3 (08:42→20:54)
[2021-09-06] MEDS ORDERED: Magnesium Sulfate 2 gm BAG 2 GM/50 ML BAG IVPB ONE (11:39)
[2021-09-06] MEDS: Lansoprazole SUSP ORALSYR 3 MG/ML PO SCH (15:59)
[2021-09-06] MEDS: Latanoprost 0.005% 2.5 ml BTL BOTH EYES SCH (20:59)
[2021-09-07 05:43] LABS: ABS Lymphocytes 0.8 10^3/ul (1.0-4.8); ABS Monocytes 0.6 10^3/ul (0-0.8); ABS Neutrophils 3.6 10^3/ul (1.5-7.7); Eosinophil % 0.6 %; Hematocrit 30 % (42-52); Hemoglobin 10.3 g/dL (14.0-18.0); Lymphocyte % 15.4 %; Mean Corpuscular HGB Conc 35 g/dL (31-36); Mean Corpuscular Hemoglobin 32 pg (27-31); Mean Corpuscular Volume 92 fL (80-94); Nucleated Red Blood Cells % 0.1; Platelet Count 165 10^3/uL (150-450); Red Blood Count 3.24 10^6 /uL (4.18-5.48); Red Cell Distribution Width 15 % (10-15); White Blood Count 5.1 10^3/uL (3.5-10.8)
[2021-09-07 06:00] LABS: Anion Gap 5 mmol/L (2-11); Blood Urea Nitrogen 17 mg/dL (6-24); CO2 Carbon Dioxide 28 mmol/L (22-32); Chloride 102 mmol/L (101-111); Glucose 136 mg/dL (70-100); Magnesium 2.1 mg/dL (1.9-2.7); Potassium 4.4 mmol/L (3.5-5.0); Sodium 135 mmol/L (135-145); eGFR CKD-EPI 92.4 (>60)
[2021-09-07 07:59] LABS: ALT 32 U/L (7-52); AST 33 U/L (13-39); Albumin 2.8 g/dL (3.2-5.2); Albumin/Globulin Ratio 0.9 (1-3); Alkaline Phosphatase 111 U/L (35-149); Globulin 3.1 g/dL (2-4); Total Protein 5.9 g/dL (6.4-8.9)
[2021-09-07] MEDS: Potassium & Sodium Phos 250 mg = 1 PACKET G TUBE SCH ×3 (11:38→22:06)
[2021-09-07] MEDS: Lansoprazole SUSP ORALSYR 3 MG/ML PO SCH (11:40)
[2021-09-07 20:09] LABS: Urine Appearance Cloudy; Urine Bilirubin Negative (Negative); Urine Blood Negative (Negative); Urine Color Yellow; Urine Glucose Negative (Negative); Urine Ketones Negative (Negative); Urine Nitrite Negative (Negative); Urine Protein Negative (Negative); Urine Specific Gravity 1.021 (1.002-1.030); Urine Urobilinogen Negative (Negative)
[2021-09-07 20:27] LABS: Urine Bacteria Absent (Absent); Urine Red Blood Cell Absent (Absent); Urine White Blood Cell 2+(11-20/hpf) (Absent)
[2021-09-07] MEDS: Latanoprost 0.005% 2.5 ml BTL BOTH EYES SCH (22:07)
[2021-09-08 06:34] LABS: Hematocrit 30 % (42-52); Hemoglobin 9.8 g/dL (14.0-18.0); Mean Corpuscular HGB Conc 33 g/dL (31-36); Mean Corpuscular Hemoglobin 30 pg (27-31); Mean Corpuscular Volume 92 fL (80-94); Mean Platelet Volume 7.1 fL (7.4-10.4); Platelet Count 161 10^3/uL (150-450); Red Blood Count 3.24 10^6 /uL (4.18-5.48); Red Cell Distribution Width 15 % (10-15); White Blood Count 5.2 10^3/uL (3.5-10.8)
[2021-09-08 06:48] LABS: Potassium 4.3 mmol/L (3.5-5.0); eGFR CKD-EPI 95.9 (>60)
[2021-09-08 06:54] LABS: Rapid COVID-19 Molecular Undetected (Undetected)
[2021-09-08] MEDS: Lansoprazole SUSP ORALSYR 3 MG/ML PO SCH (11:54)
[2021-09-08] MEDS: Potassium & Sodium Phos 250 mg = 1 PACKET G TUBE SCH ×3 (11:54→20:31)
[2021-09-08] MEDS: Latanoprost 0.005% 2.5 ml BTL BOTH EYES SCH (20:31)
[2021-09-09 05:58] LABS: Hematocrit 29 % (42-52); Hemoglobin 9.8 g/dL (14.0-18.0); Mean Corpuscular HGB Conc 34 g/dL (31-36); Mean Corpuscular Hemoglobin 31 pg (27-31); Mean Corpuscular Volume 92 fL (80-94); Mean Platelet Volume 7.5 fL (7.4-10.4); Platelet Count 161 10^3/uL (150-450); Red Blood Count 3.18 10^6 /uL (4.18-5.48); Red Cell Distribution Width 15 % (10-15); White Blood Count 4.9 10^3/uL (3.5-10.8)
[2021-09-09 06:13] LABS: Calcium 7.9 mg/dL (8.6-10.3); Magnesium 1.9 mg/dL (1.9-2.7); Potassium 4.1 mmol/L (3.5-5.0)
[2021-09-09 06:18] LABS: eGFR CKD-EPI 97.9 (>60)
[2021-09-09] MEDS: Potassium & Sodium Phos 250 mg = 1 PACKET G TUBE SCH ×3 (10:21→20:59)
[2021-09-09] MEDS: Lansoprazole SUSP ORALSYR 3 MG/ML PO SCH (14:49)
[2021-09-09] MEDS: Latanoprost 0.005% 2.5 ml BTL BOTH EYES SCH (21:01)
[2021-09-10 08:15] VITALS: BP 126/65
[2021-09-10] MEDS: Lansoprazole SUSP ORALSYR 3 MG/ML PO SCH (09:48)
[2021-09-10] MEDS: Potassium & Sodium Phos 250 mg = 1 PACKET G TUBE SCH (09:48)
[2021-09-10 10:57] LABS: Rapid COVID-19 Molecular Undetected (Undetected)
== END 2021-09-10 14:00 | DRG 853 ==
LOC: ED 10:49 → EDHOLD 16:14 → SUATTDRO 16:14 → ICU 16:50 → SSU 08-21 17:25
PROVIDERS: ADMIT Nurse Practitioner Adult Health; ATTEND Internal Medicine

== ENCOUNTER 2022-01-27 07:07 | Inpatient (IN) ==
[2022-01-27] MEDS ORDERED: Norepinephrine 16MCG/ML BAG NS 4,000 MCG/250 ML BAG IV ONE (07:16)
[2022-01-27] MEDS: Lactated Ringers 1000 ml BAG 1,000 ML IV ONE ×2 (07:20→07:30)
[2022-01-27] MEDS ORDERED: Piperacillin/Tazobac ADVAN 3.375 GM in NS 0.9% 100 ml BAG 100 ML IV ONE (07:33)
[2022-01-27] MEDS ORDERED: Vancomycin 1,000 MG in NS 0.9% 250 ml 250 ML IVPB ONE (07:33)
[2022-01-27 07:54] LABS: Hematocrit 35 % (42-52); Mean Corpuscular HGB Conc 32 g/dL (31-36); Mean Corpuscular Hemoglobin 26 pg (27-31); Mean Corpuscular Volume 81 fL (80-94); Red Blood Count 4.29 10^6 /uL (4.18-5.48); Red Cell Distribution Width 22 % (10-15); White Blood Count 2.5 10^3/uL (3.5-10.8)
[2022-01-27 08:01] LABS: INR 1.2 (0.89-1.11)
[2022-01-27 08:16] LABS: Ammonia 24 mcmol/L (16-53)
[2022-01-27 08:21] LABS: BNP 112 pg/mL (<=100)
[2022-01-27 08:42] LABS: Albumin 2.8 g/dL (3.2-5.2); Albumin/Globulin Ratio 1.1 (1-3); C Reactive Protein 9.65 mg/L (<8.01); Calcium 8.6 mg/dL (8.6-10.3); Globulin 2.6 g/dL (2-4); Potassium 3.3 mmol/L (3.5-5.0); Total Bilirubin 0.7 mg/dL (0.2-1.0); Total Protein 5.4 g/dL (6.4-8.9); eGFR CKD-EPI 44.1 (>60)
[2022-01-27 08:48] LABS: Urine Appearance Clear; Urine Specific Gravity 1.011 (1.002-1.030)
[2022-01-27 08:49] LABS: Urine Color Red
[2022-01-27] MEDS ORDERED: Norepinephrine 16MCG/ML BAG NS 4,000 MCG/250 ML BAG IV SCH (09:00)
[2022-01-27 09:12] LABS: ABS Lymphocytes 0.1 10^3/ul (1.0-4.8); ABS Neutrophils 2.4 10^3/ul (1.5-7.7); Eosinophil % 0.4 %; Lymphocyte % 2.7 %; Mean Platelet Volume 8.1 fL (7.4-10.4); Nucleated Red Blood Cells % 0.9; Platelet Count 87 10^3/uL (150-450)
[2022-01-27 09:13] LABS: Anisocytosis 2+; Polychromasia 1+
[2022-01-27 09:18] LABS: Urine Bacteria Absent (Absent); Urine Red Blood Cell 3+(>10/hpf) (Absent); Urine White Blood Cell 3+(>20/hpf) (Absent)
[2022-01-27] MEDS: Norepinephrine 16MCG/ML BAGD5W 4,000 MCG/250 ML BAG IV SCH ×3 (09:38→13:46)
[2022-01-27 09:57] LABS: High Sensitivity Troponin 1 Hr 596 pg/mL (<20)
[2022-01-27] MEDS ORDERED: PHENYLEPHRINE DRIP IVPREMIX 50 MG/250 ML BAG IV SCH (11:00)
[2022-01-27] MEDS ORDERED: Enoxaparin 40 MG/0.4 ML SYR SUBCUT SCH (11:00)
[2022-01-27] MEDS ORDERED: Lactated Ringers 1000 ml BAG 1,000 ML IV SCH ×2 (11:00→16:40)
[2022-01-27] MEDS ORDERED: metroNIDAZOLE IV 500 MG/100ML 500 MG/100 ML BAG IVPB SCH (11:00)
[2022-01-27] MEDS ORDERED: metroNIDAZOLE IV 500 MG/100ML - ED ONCE IVPB ONE (11:00)
[2022-01-27] MEDS ORDERED: Vancomycin per Pharmacy 1 EA NOTE FOLLOW UP SCH ×2 (12:00→12:05)
[2022-01-27 12:36] LABS: Magnesium 1.7 mg/dL (1.9-2.7)
[2022-01-27] MEDS: KCL 20 MEQ/100 ML IVPREMIX 20 MEQ/100 ML BAG IV SCH ×2 (12:56→15:03)
[2022-01-27] MEDS ORDERED: Magnesium Sulfate 2 gm BAG 2 GM/50 ML BAG IV ONE (14:00)
[2022-01-27] MEDS ORDERED: Hydrocortisone INJ 100 MG/2ML 2 ML VIAL IV ONE (14:00)
[2022-01-27] MEDS: Pantoprazole VIAL 40 MG VIAL IV SCH (14:07)
[2022-01-27] MEDS ORDERED: Lactated Ringers 1000 ml BAG 500 ML IV SCH (15:00)
[2022-01-27] MEDS ORDERED: Magnesium Sulfate 1 GM IV 1 GM/100 ML BAG IV ONE (15:00)
[2022-01-27] MEDS: Vasopressin 100 UNITS in D5W 250 ml BAG 245 ML IV SCH (15:20)
[2022-01-27] MEDS: Norepinephrine *QUAD STRENGTH* 16 mg/250 mL NS per protocol IV SCH ×2 (17:01→22:42)
[2022-01-27] MEDS ORDERED: Sodium Bicarbonate 8.4% SYR 50 ml SYRINGE IV ONE (17:37)
[2022-01-27] MEDS ORDERED: NORMOSOL-R pH 7.4 1000 mL BAG 1,000 ML IV SCH (18:00)
[2022-01-27] MEDS ORDERED: Vasopressin 100 UNITS in D5W 250 ml BAG 245 ML IV SCH (19:02)
[2022-01-27] MEDS ORDERED: Zosyn per Pharmacy NOTE FOLLOW UP PRN (20:49)
[2022-01-27] MEDS ORDERED: cefTRIAXone 2 gm/50 mL D5W 2 GM/50 ML BAG IV SCH (21:00)
[2022-01-27] MEDS ORDERED: ZOSYN 3.375 GM x ONE DOSE over 30 miuntes IV (21:00)
[2022-01-27] MEDS ORDERED: Phenylephrine IV 10 MG/ML 1 ml VIAL ONE (21:52)
[2022-01-27] MEDS ORDERED: Phenylephrine DRIP 0.2 MG/ML in NS 0.9% 250 ML (IVPREMIX) IV SCH (22:15)
[2022-01-27 22:36] LABS: PCO2 Arterial 25 mmHg (35-45); PO2 Arterial 81 mmHg (80-100)
[2022-01-27] MEDS: Hydrocortisone INJ 100 MG/2ML 2 ML VIAL IV SCH (22:38)
[2022-01-27] MEDS: Latanoprost 0.005% 2.5 ml BTL BOTH EYES SCH (22:38)
[2022-01-27] MEDS: Acetaminophen IV 1 GM/100ML 100 ML IV PRN (22:55)
[2022-01-28] MEDS ORDERED: Amikacin IV 500 MG/2 ML VIAL IVPB ONE ×2 (00:04)
[2022-01-28] MEDS ORDERED: AMIKACIN IVPB ONE (01:00)
[2022-01-28] MEDS ORDERED: NS 0.9% IVPB ONE (01:00)
[2022-01-28 01:09] LABS: PCO2 Arterial 25 mmHg (35-45); PO2 Arterial 81 mmHg (80-100)
[2022-01-28 01:30] LABS: Calcium 7.8 mg/dL (8.6-10.3); Potassium 4.4 mmol/L (3.5-5.0); eGFR CKD-EPI 28.6 (>60)
[2022-01-28] MEDS ORDERED: ZOSYN 3.375 GM Q8H per EXTENDED INFUSION IV SCH (01:30)
[2022-01-28 03:33] LABS: Phosphorus 1.9 mg/dL (2.5-5.0)
[2022-01-28] MEDS: Norepinephrine *QUAD STRENGTH* 16 mg/250 mL NS per protocol IV SCH ×3 (04:45→18:23)
[2022-01-28] MEDS: Hydrocortisone INJ 100 MG/2ML 2 ML VIAL IV SCH ×3 (05:53→21:35)
[2022-01-28] MEDS: PHENYLEPHRINE DRIP IVPREMIX 50 MG/250 ML BAG IV SCH ×5 (06:21→22:10)
[2022-01-28 06:25] LABS: Albumin 2.7 g/dL (3.2-5.2); Calcium 7.7 mg/dL (8.6-10.3); Globulin 2.6 g/dL (2-4); Magnesium 2.4 mg/dL (1.9-2.7); Phosphorus 3.7 mg/dL (2.5-5.0); Potassium 4.8 mmol/L (3.5-5.0); Total Protein 5.3 g/dL (6.4-8.9); eGFR CKD-EPI 23.8 (>60)
[2022-01-28] MEDS ORDERED: Vancomycin 1000 MG in NS 0.9% 250 ML IVPB SCH (06:30)
[2022-01-28 06:46] LABS: Hematocrit 39 % (42-52); Hemoglobin 12.7 g/dL (14.0-18.0); Mean Corpuscular HGB Conc 33 g/dL (31-36); Mean Corpuscular Hemoglobin 25 pg (27-31); Mean Corpuscular Volume 78 fL (80-94); Mean Platelet Volume 8.3 fL (7.4-10.4); Platelet Count 54 10^3/uL (150-450); Red Blood Count 5.03 10^6 /uL (4.18-5.48); Red Cell Distribution Width 23 % (10-15); White Blood Count 16.8 10^3/uL (3.5-10.8)
[2022-01-28 07:53] LABS: C Reactive Protein 116.77 mg/L (<8.01)
[2022-01-28] MEDS: Dextrose 50% Syringe 50 ml 25 GM/50 ML SYRINGE IV PUSH PRN ×2 (08:40→16:19)
[2022-01-28] MEDS: Pantoprazole VIAL 40 MG VIAL IV SCH (08:42)
[2022-01-28] MEDS: Heparin 5000 UNITS/ML 1 mL VIAL SUBCUT SCH ×2 (08:43→21:35)
[2022-01-28 08:50] LABS: Hypochromasia 1+; Microcytosis 1+; Polychromasia 1+
[2022-01-28 08:58] LABS: ABS Eosinophils 0.1 10^3/ul (0-0.6); ABS Lymphocytes 0.1 10^3/ul (1.0-4.8); ABS Monocytes 0.1 10^3/ul (0-0.8); ABS Neutrophils 16.5 10^3/ul (1.5-7.7); ABS Nucleated RBC 0.1 10^3/ul; Nucleated Red Blood Cells % 0.3
[2022-01-28] MEDS: cefTRIAXone 1 gm/50 mL D5W 1 GM/50 ML BAG IV SCH ×2 (10:47→21:34)
[2022-01-28 11:11] LABS: Hematocrit 40 % (42-52); Hemoglobin 12.7 g/dL (14.0-18.0); Mean Corpuscular HGB Conc 32 g/dL (31-36); Mean Corpuscular Hemoglobin 25 pg (27-31); Mean Corpuscular Volume 78 fL (80-94); Mean Platelet Volume 8.5 fL (7.4-10.4); Platelet Count 48 10^3/uL (150-450); Red Blood Count 5.15 10^6 /uL (4.18-5.48); Red Cell Distribution Width 23 % (10-15); White Blood Count 19.6 10^3/uL (3.5-10.8)
[2022-01-28 11:13] LABS: INR 2.03 (0.89-1.11)
[2022-01-28 11:47] LABS: ABS Lymphocytes 0.1 10^3/ul (1.0-4.8); ABS Monocytes 0.2 10^3/ul (0-0.8); ABS Neutrophils 19.2 10^3/ul (1.5-7.7); Anisocytosis 1+; Eosinophil % 0.3 %; Lymphocyte % 0.6 %; Microcytosis 2+; Nucleated Red Blood Cells % 0.2
[2022-01-28 11:57] LABS: eGFR CKD-EPI 21.9 (>60)
[2022-01-28] MEDS ORDERED: Vasopressin 100 UNITS in D5W 250 ml BAG 245 ML IV SCH (12:44)
[2022-01-28] MEDS: Vasopressin 100 UNITS in D5W 250 ml BAG 245 ML IV SCH (13:05)
[2022-01-28] MEDS ORDERED: ZOSYN 3.375 GM Q12H per EXTENDED INFUSION IV SCH (15:00)
[2022-01-28] MEDS ORDERED: D5W 1/2 NS 1000 ml BAG 1,000 ML IV SCH ×2 (17:00→17:03)
[2022-01-28 17:55] LABS: PCO2 Arterial 22 mmHg (35-45); PO2 Arterial 73 mmHg (80-100)
[2022-01-28] MEDS: Latanoprost 0.005% 2.5 ml BTL BOTH EYES SCH (21:35)
[2022-01-29] MEDS: Norepinephrine *QUAD STRENGTH* 16 mg/250 mL NS per protocol IV SCH ×4 (00:31→20:05)
[2022-01-29] MEDS: PHENYLEPHRINE DRIP IVPREMIX 50 MG/250 ML BAG IV SCH ×3 (02:40→12:03)
[2022-01-29] MEDS ORDERED: Vancomycin Trough Check NOTE FOLLOW UP ONE (05:30)
[2022-01-29 05:46] LABS: Hematocrit 42 % (42-52); Hemoglobin 13.4 g/dL (14.0-18.0); Mean Corpuscular HGB Conc 32 g/dL (31-36); Mean Corpuscular Hemoglobin 25 pg (27-31); Mean Corpuscular Volume 78 fL (80-94); Red Cell Distribution Width 23 % (10-15)
[2022-01-29] MEDS: Hydrocortisone INJ 100 MG/2ML 2 ML VIAL IV SCH ×3 (06:44→22:39)
[2022-01-29 06:46] LABS: Magnesium 2.3 mg/dL (1.9-2.7)
[2022-01-29 06:52] LABS: Phosphorus 6.1 mg/dL (2.5-5.0); eGFR CKD-EPI 15.1 (>60)
[2022-01-29 06:59] LABS: Calcium 6.4 mg/dL (8.6-10.3); Potassium 6.2 mmol/L (3.5-5.0)
[2022-01-29] MEDS ORDERED: Dextrose 50% Syringe 50 ml 25 GM/50 ML SYRINGE IV PUSH ONE ×2 (07:00→20:25)
[2022-01-29] MEDS ORDERED: Sodium Bicarb 8.4% Vial 50 ML 150 MEQ in D5W 1000 ml BAG 850 ML IV SCH ×2 (08:00→20:30)
[2022-01-29 08:19] LABS: Microcytosis 1+
[2022-01-29 08:20] LABS: Dohle Bodies Present
[2022-01-29 08:21] LABS: ABS Basophils 0.1 10^3/ul (0-0.2); ABS Eosinophils 0.1 10^3/ul (0-0.6); ABS Lymphocytes 0.3 10^3/ul (1.0-4.8); ABS Monocytes 0.7 10^3/ul (0-0.8); ABS Neutrophils 27.8 10^3/ul (1.5-7.7); Eosinophil % 0.4 %; Lymphocyte % 0.9 %; Mean Platelet Volume 9.2 fL (7.4-10.4); Platelet Count 29 10^3/uL (150-450)
[2022-01-29] MEDS: Pantoprazole VIAL 40 MG VIAL IV SCH (09:24)
[2022-01-29] MEDS: Heparin 5000 UNITS/ML 1 mL VIAL SUBCUT SCH (09:24)
[2022-01-29] MEDS: cefTRIAXone 1 gm/50 mL D5W 1 GM/50 ML BAG IV SCH ×2 (09:25→21:24)
[2022-01-29 17:55] LABS: Hematocrit 39 % (42-52); Hemoglobin 12.4 g/dL (14.0-18.0); Mean Corpuscular HGB Conc 32 g/dL (31-36); Mean Corpuscular Hemoglobin 26 pg (27-31); Mean Corpuscular Volume 80 fL (80-94); Red Blood Count 4.84 10^6 /uL (4.18-5.48); Red Cell Distribution Width 23 % (10-15); White Blood Count 25.4 10^3/uL (3.5-10.8)
[2022-01-29 17:57] LABS: ABS Basophils 0.1 10^3/ul (0-0.2); ABS Eosinophils 0.2 10^3/ul (0-0.6); ABS Lymphocytes 0.2 10^3/ul (1.0-4.8); ABS Monocytes 0.4 10^3/ul (0-0.8); ABS Neutrophils 24.4 10^3/ul (1.5-7.7); ABS Nucleated RBC 0.1 10^3/ul; Eosinophil % 0.9 %; Lymphocyte % 0.8 %; Nucleated Red Blood Cells % 0.2
[2022-01-29 19:50] LABS: Albumin 2.1 g/dL (3.2-5.2); Calcium 6.5 mg/dL (8.6-10.3); Total Bilirubin 1.2 mg/dL (0.2-1.0)
[2022-01-29 19:56] LABS: Albumin/Globulin Ratio 0.9 (1-3); Globulin 2.4 g/dL (2-4); Total Protein 4.5 g/dL (6.4-8.9); eGFR CKD-EPI 12.6 (>60)
[2022-01-29 20:06] LABS: Mean Platelet Volume 9.2 fL (7.4-10.4)
[2022-01-29 20:09] LABS: Potassium 6.8 mmol/L (3.5-5.0)
[2022-01-29 20:10] LABS: Platelet Count 18 10^3/uL (150-450)
[2022-01-29] MEDS: Dextrose 50% Syringe 50 ml 25 GM/50 ML SYRINGE IV PUSH PRN (20:22)
[2022-01-29] MEDS ORDERED: Sodium Polystyrene ORAL.SUSP 15 GM/60 ML BTL PEG TUBE ONE (20:24)
[2022-01-29] MEDS ORDERED: Dextrose 50% Syringe 50 ml 25 GM/50 ML SYRINGE IV PUSH PRN (20:25)
[2022-01-29] MEDS: Latanoprost 0.005% 2.5 ml BTL BOTH EYES SCH (22:40)
[2022-01-30] MEDS ORDERED: Sodium Bicarbonate 8.4% SYR 50 ml SYRINGE IV ONE ×2 (00:16→00:57)
[2022-01-30] MEDS ORDERED: Digoxin IV 0.5 MG/2 ML AMP (0.25 MG/ML) IV SLOW PU ONE (02:29)
[2022-01-30] MEDS: Sodium Bicarb 8.4% Vial 50 ML 150 MEQ in D5W 1000 ml BAG 850 ML IV SCH ×4 (02:54→22:11)
[2022-01-30] MEDS: PHENYLEPHRINE DRIP IVPREMIX 50 MG/250 ML BAG IV SCH ×2 (03:00→20:10)
[2022-01-30] MEDS: Norepinephrine *QUAD STRENGTH* 16 mg/250 mL NS per protocol IV SCH (04:45)
[2022-01-30 04:46] LABS: Hematocrit 35 % (42-52); Hemoglobin 11.4 g/dL (14.0-18.0); Mean Corpuscular HGB Conc 33 g/dL (31-36); Mean Corpuscular Hemoglobin 25 pg (27-31); Mean Corpuscular Volume 78 fL (80-94); Mean Platelet Volume 10.5 fL (7.4-10.4); Platelet Count 14 10^3/uL (150-450); Red Blood Count 4.51 10^6 /uL (4.18-5.48); Red Cell Distribution Width 23 % (10-15); White Blood Count 18.1 10^3/uL (3.5-10.8)
[2022-01-30 05:08] LABS: ABS Eosinophils 0.5 10^3/ul (0-0.6); ABS Lymphocytes 0.3 10^3/ul (1.0-4.8); ABS Monocytes 4.2 10^3/ul (0-0.8); ABS Neutrophils 13.1 10^3/ul (1.5-7.7); Eosinophil % 2.6 %; Lymphocyte % 1.7 %; Nucleated Red Blood Cells % 0.2; RBC Morphology Normal (Normal)
[2022-01-30 05:19] LABS: Calcium 5.7 mg/dL (8.6-10.3); Potassium 5.6 mmol/L (3.5-5.0); eGFR CKD-EPI 13.4 (>60)
[2022-01-30] MEDS ORDERED: Calcium Gluconate 2 GM in NS 0.9% 100 ml BAG 100 ML IV ONE (05:37)
[2022-01-30] MEDS: Hydrocortisone INJ 100 MG/2ML 2 ML VIAL IV SCH ×3 (05:56→21:48)
[2022-01-30] MEDS: Dextran 70/Hypromellose Tears Eye Drops 15 ml BTL (for Artificials Tears) BOTH EYES PRN ×2 (08:06→14:30)
[2022-01-30] MEDS: Pantoprazole VIAL 40 MG VIAL IV SCH (08:06)
[2022-01-30] MEDS: cefTRIAXone 1 gm/50 mL D5W 1 GM/50 ML BAG IV SCH ×2 (08:08→20:10)
[2022-01-30 18:17] LABS: PCO2 Arterial 31 mmHg (35-45); PO2 Arterial 70 mmHg (80-100)
[2022-01-30] MEDS: Vasopressin 100 UNITS in NS 0.9% 250 ml 245 ML IV SCH (20:00)
[2022-01-30] MEDS: Dextrose 50% Syringe 50 ml 25 GM/50 ML SYRINGE IV PUSH PRN (20:35)
[2022-01-30] MEDS: Nystatin TOP POWDER 15 GM BTL TOPICAL SCH (20:45)
[2022-01-30] MEDS: Latanoprost 0.005% 2.5 ml BTL BOTH EYES SCH (20:45)
[2022-01-31] MEDS: PHENYLEPHRINE DRIP IVPREMIX 50 MG/250 ML BAG IV SCH ×6 (01:15→22:02)
[2022-01-31 05:17] LABS: PCO2 Arterial 35 mmHg (35-45); PO2 Arterial 89 mmHg (80-100)
[2022-01-31 05:27] LABS: Hematocrit 32 % (42-52); Hemoglobin 10.2 g/dL (14.0-18.0); Mean Corpuscular HGB Conc 32 g/dL (31-36); Mean Corpuscular Hemoglobin 25 pg (27-31); Mean Corpuscular Volume 78 fL (80-94); Mean Platelet Volume 12.7 fL (7.4-10.4); Platelet Count 6 10^3/uL (150-450); Red Blood Count 4.08 10^6 /uL (4.18-5.48); Red Cell Distribution Width 24 % (10-15); White Blood Count 15.8 10^3/uL (3.5-10.8)
[2022-01-31 05:46] LABS: Albumin/Globulin Ratio 0.9 (1-3); Globulin 2.2 g/dL (2-4); Magnesium 2.4 mg/dL (1.9-2.7); Phosphorus 6.1 mg/dL (2.5-5.0); Potassium 4.8 mmol/L (3.5-5.0); Total Bilirubin 3.1 mg/dL (0.2-1.0); Total Protein 4.2 g/dL (6.4-8.9); eGFR CKD-EPI 11.6 (>60)
[2022-01-31] MEDS: Hydrocortisone INJ 100 MG/2ML 2 ML VIAL IV SCH ×3 (05:55→22:02)
[2022-01-31] MEDS: Sodium Bicarb 8.4% Vial 50 ML 150 MEQ in D5W 1000 ml BAG 850 ML IV SCH (05:59)
[2022-01-31 06:06] LABS: Calcium 5.6 mg/dL (8.6-10.3)
[2022-01-31] MEDS ORDERED: Calcium Gluconate 2 GM in NS 0.9% 100 ml BAG 100 ML IV ONE (06:21)
[2022-01-31 06:26] LABS: Microcytosis 1+; Target Cells 1+
[2022-01-31 06:27] LABS: ABS Eosinophils 0.1 10^3/ul (0-0.6); ABS Lymphocytes 0.3 10^3/ul (1.0-4.8); ABS Monocytes 7.9 10^3/ul (0-0.8); ABS Neutrophils 7.5 10^3/ul (1.5-7.7); ABS Nucleated RBC 0.1 10^3/ul; Eosinophil % 0.6 %; Lymphocyte % 1.6 %; Nucleated Red Blood Cells % 0.5
[2022-01-31] MEDS: Norepinephrine *QUAD STRENGTH* 16 mg/250 mL NS per protocol IV SCH (06:56)
[2022-01-31] MEDS: Dextran 70/Hypromellose Tears Eye Drops 15 ml BTL (for Artificials Tears) BOTH EYES PRN (07:28)
[2022-01-31] MEDS: cefTRIAXone 1 gm/50 mL D5W 1 GM/50 ML BAG IV SCH ×2 (08:24→20:45)
[2022-01-31] MEDS: Pantoprazole VIAL 40 MG VIAL IV SCH (08:24)
[2022-01-31] MEDS: Nystatin TOP POWDER 15 GM BTL TOPICAL SCH ×3 (08:24→20:51)
[2022-01-31] MEDS ORDERED: Norepinephrine IV 16 MG in NS 0.9% 250 ml 234 ML IV SCH (10:43)
[2022-01-31 12:25] LABS: PCO2 Arterial 34 mmHg (35-45); PO2 Arterial 99 mmHg (80-100)
[2022-01-31 12:40] LABS: Mean Platelet Volume 10.2 fL (7.4-10.4); Platelet Count 9 10^3/uL (150-450)
[2022-01-31] MEDS ORDERED: Desmopressin Acetate 20 MCG in NS 0.9% 50 ML 50 ML IVPB ONE (13:30)
[2022-01-31] MEDS ORDERED: fentaNYL 100 mcg/2 ml 50 MCG/ML VIAL IV ONE (13:37)
[2022-01-31] MEDS ORDERED: Lidocaine 1% VIAL 10 MG/ML VIAL INJ ONE (13:37)
[2022-01-31] MEDS ORDERED: fentaNYL 100 mcg/2 ml 50 MCG/ML VIAL ONE (13:39)
[2022-01-31] MEDS ORDERED: Lidocaine 1% VIAL 10 MG/ML VIAL ONE (13:41)
[2022-01-31] MEDS ORDERED: Heparin 5000 UNITS/ML 1 mL VIAL ONE (14:17)
[2022-01-31] MEDS ORDERED: Midazolam 2 mg/2 ml VIAL 1 mg/ml 2 ml VIAL (2 mg) IV SLOW PU ONE (14:41)
[2022-01-31] MEDS: Midazolam 5 mg/5 ml VIAL 1 mg/ml 5 ml VIAL (5 mg) ONE ×2 (14:41→15:19)
[2022-01-31] MEDS ORDERED: Heparin 1,000 UNIT/ML 10 ml (10,000 UNITS) CATHLAB/DIALYSIS DIALYSIS ONE (15:30)
[2022-01-31 15:36] LABS: Hematocrit 29 % (42-52); Hemoglobin 9.5 g/dL (14.0-18.0); Mean Corpuscular HGB Conc 32 g/dL (31-36); Mean Corpuscular Hemoglobin 25 pg (27-31); Mean Corpuscular Volume 79 fL (80-94); Mean Platelet Volume 11.4 fL (7.4-10.4); Platelet Count 6 10^3/uL (150-450); Red Blood Count 3.74 10^6 /uL (4.18-5.48); Red Cell Distribution Width 23 % (10-15); White Blood Count 14.3 10^3/uL (3.5-10.8)
[2022-01-31 16:00] LABS: Albumin/Globulin Ratio 0.9 (1-3); Globulin 2.3 g/dL (2-4); Potassium 4.5 mmol/L (3.5-5.0); Total Bilirubin 3.5 mg/dL (0.2-1.0); Total Protein 4.3 g/dL (6.4-8.9); eGFR CKD-EPI 10.7 (>60)
[2022-01-31 16:08] LABS: Calcium 5.9 mg/dL (8.6-10.3)
[2022-01-31 20:33] LABS: Mean Platelet Volume 12.2 fL (7.4-10.4); Platelet Count 5 10^3/uL (150-450)
[2022-01-31 20:35] LABS: ABS Eosinophils 0.2 10^3/ul (0-0.6); ABS Lymphocytes 0.3 10^3/ul (1.0-4.8); ABS Monocytes 9.3 10^3/ul (0-0.8); ABS Neutrophils 4.6 10^3/ul (1.5-7.7); ABS Nucleated RBC 0.1 10^3/ul; Eosinophil % 1.2 %; Lymphocyte % 2.4 %; Nucleated Red Blood Cells % 0.4
[2022-01-31] MEDS: Latanoprost 0.005% 2.5 ml BTL BOTH EYES SCH (20:51)
[2022-02-01] MEDS: Dextrose 50% Syringe 50 ml 25 GM/50 ML SYRINGE IV PUSH PRN (00:16)
[2022-02-01] MEDS: PHENYLEPHRINE DRIP IVPREMIX 50 MG/250 ML BAG IV SCH ×4 (01:27→13:57)
[2022-02-01 04:45] LABS: Hematocrit 28 % (42-52); Hemoglobin 9.2 g/dL (14.0-18.0); Mean Corpuscular HGB Conc 33 g/dL (31-36); Mean Corpuscular Hemoglobin 25 pg (27-31); Mean Corpuscular Volume 78 fL (80-94); Mean Platelet Volume 12.8 fL (7.4-10.4); Platelet Count 6 10^3/uL (150-450); Red Blood Count 3.62 10^6 /uL (4.18-5.48); Red Cell Distribution Width 23 % (10-15); White Blood Count 14.5 10^3/uL (3.5-10.8)
[2022-02-01 05:13] LABS: Albumin 2.1 g/dL (3.2-5.2); Globulin 2.2 g/dL (2-4); Magnesium 2.6 mg/dL (1.9-2.7); Phosphorus 7.1 mg/dL (2.5-5.0); Potassium 4.3 mmol/L (3.5-5.0); Total Bilirubin 3.8 mg/dL (0.2-1.0); Total Protein 4.3 g/dL (6.4-8.9); eGFR CKD-EPI 9.9 (>60)
[2022-02-01] MEDS: Hydrocortisone INJ 100 MG/2ML 2 ML VIAL IV SCH ×3 (05:16→21:05)
[2022-02-01 05:26] LABS: Calcium 5.5 mg/dL (8.6-10.3)
[2022-02-01] MEDS ORDERED: Calcium Gluconate 3 GM in NS 0.9% 250 ml 250 ML IV ONE (05:26)
[2022-02-01 05:42] LABS: ABS Eosinophils 0.1 10^3/ul (0-0.6); ABS Lymphocytes 0.5 10^3/ul (1.0-4.8); ABS Neutrophils 12.9 10^3/ul (1.5-7.7); Anisocytosis 1+; Eosinophil % 0.9 %; Lymphocyte % 3.4 %; Microcytosis 1+; Nucleated Red Blood Cells % 0.2
[2022-02-01] MEDS: cefTRIAXone 1 gm/50 mL D5W 1 GM/50 ML BAG IV SCH ×2 (08:22→21:05)
[2022-02-01] MEDS: Pantoprazole VIAL 40 MG VIAL IV SCH (08:22)
[2022-02-01] MEDS: Nystatin TOP POWDER 15 GM BTL TOPICAL SCH ×3 (08:23→21:05)
[2022-02-01] MEDS: Vasopressin 100 UNITS in NS 0.9% 250 ml 245 ML IV SCH (08:26)
[2022-02-01 08:54] LABS: PCO2 Arterial 34 mmHg (35-45); PO2 Arterial 122 mmHg (80-100)
[2022-02-01 09:00] LABS: Mean Platelet Volume 10.3 fL (7.4-10.4); Platelet Count 9 10^3/uL (150-450)
[2022-02-01] MEDS ORDERED: Heparin VIAL 10,000 UNITS/ML VIAL (TEN THOUSAND) ONE (09:00)
[2022-02-01] MEDS ORDERED: Heparin 1,000 UNIT/ML 10 ml (10,000 UNITS) CATHLAB/DIALYSIS DIALYSIS ONE (09:10)
[2022-02-01] MEDS: Dextran 70/Hypromellose Tears Eye Drops 15 ml BTL (for Artificials Tears) BOTH EYES PRN (10:43)
[2022-02-01 12:42] LABS: Albumin 2.1 g/dL (3.2-5.2); Albumin/Globulin Ratio 0.9 (1-3); Calcium 6.7 mg/dL (8.6-10.3); Globulin 2.3 g/dL (2-4); Potassium 3.8 mmol/L (3.5-5.0); Total Bilirubin 4.3 mg/dL (0.2-1.0); Total Protein 4.4 g/dL (6.4-8.9); eGFR CKD-EPI 16.7 (>60)
[2022-02-01 16:22] LABS: Hepatitis B Surface Antigen Nonreactive (Nonreactive)
[2022-02-01 16:27] LABS: Hepatitis B Core IgM Nonreactive (Nonreactive)
[2022-02-01 16:39] LABS: Hepatitis B Surface Ab Not Immune (Immune)
[2022-02-01] MEDS: Latanoprost 0.005% 2.5 ml BTL BOTH EYES SCH (21:05)
[2022-02-02 04:40] LABS: INR 0.96 (0.89-1.11)
[2022-02-02 04:56] LABS: Hematocrit 26 % (42-52); Hemoglobin 8.3 g/dL (14.0-18.0); Magnesium 2.3 mg/dL (1.9-2.7); Mean Corpuscular HGB Conc 32 g/dL (31-36); Mean Corpuscular Hemoglobin 26 pg (27-31); Mean Corpuscular Volume 79 fL (80-94); Platelet Count 4 10^3/uL (150-450); Potassium 3.3 mmol/L (3.5-5.0); Red Blood Count 3.27 10^6 /uL (4.18-5.48); Red Cell Distribution Width 23 % (10-15); Total Bilirubin 3.1 mg/dL (0.2-1.0); White Blood Count 14.3 10^3/uL (3.5-10.8); eGFR CKD-EPI 14.7 (>60)
[2022-02-02 05:55] LABS: Anisocytosis 2+; Microcytosis 1+
[2022-02-02 05:57] LABS: ABS Eosinophils 0.6 10^3/ul (0-0.6); ABS Lymphocytes 0.9 10^3/ul (1.0-4.8); ABS Monocytes 0.9 10^3/ul (0-0.8); ABS Neutrophils 11.9 10^3/ul (1.5-7.7); Eosinophil % 3.9 %; Lymphocyte % 6.5 %; Nucleated Red Blood Cells % 0.1; Toxic Granulation 1+
[2022-02-02 05:59] LABS: Dohle Bodies Present
[2022-02-02] MEDS: Hydrocortisone INJ 100 MG/2ML 2 ML VIAL IV SCH ×2 (06:13→13:43)
[2022-02-02] MEDS: Nystatin TOP POWDER 15 GM BTL TOPICAL SCH ×3 (08:08→21:24)
[2022-02-02] MEDS: Pantoprazole VIAL 40 MG VIAL IV SCH (08:24)
[2022-02-02] MEDS: cefTRIAXone 1 gm/50 mL D5W 1 GM/50 ML BAG IV SCH ×2 (08:24→21:24)
[2022-02-02] MEDS: PHENYLEPHRINE DRIP IVPREMIX 50 MG/250 ML BAG IV SCH ×2 (08:52→23:57)
[2022-02-02] MEDS ORDERED: Heparin 1,000 UNIT/ML 10 ml (10,000 UNITS) CATHLAB/DIALYSIS DIALYSIS ONE (10:00)
[2022-02-02 14:46] LABS: Activated Partial Thrombo Time 34.6 seconds (26.0-38.0); Fibrinogen 343.4 mg/dL (110.8-404.3); INR 0.95 (0.89-1.11)
[2022-02-02 15:17] LABS: Platelet Count 5 10^3/ul (150-450)
[2022-02-02 15:33] LABS: Schistocytes ABSENT
[2022-02-02] MEDS: Latanoprost 0.005% 2.5 ml BTL BOTH EYES SCH (21:24)
[2022-02-02] MEDS: Dextran 70/Hypromellose Tears Eye Drops 15 ml BTL (for Artificials Tears) BOTH EYES PRN (21:28)
[2022-02-03] MEDS: Hydrocortisone INJ 100 MG/2ML 2 ML VIAL IV SCH ×2 (04:38→14:07)
[2022-02-03 04:58] LABS: ABS Lymphocytes 0.6 10^3/ul (1.0-4.8); ABS Monocytes 0.9 10^3/ul (0-0.8); ABS Neutrophils 12.9 10^3/ul (1.5-7.7); Eosinophil % 0.1 %; Hematocrit 30 % (42-52); Hemoglobin 9.3 g/dL (14.0-18.0); Lymphocyte % 4.1 %; Mean Corpuscular HGB Conc 32 g/dL (31-36); Mean Corpuscular Hemoglobin 25 pg (27-31); Mean Corpuscular Volume 81 fL (80-94); Mean Platelet Volume 11.7 fL (7.4-10.4); Nucleated Red Blood Cells % 0.2; Platelet Count 6 10^3/uL (150-450); Red Blood Count 3.66 10^6 /uL (4.18-5.48); Red Cell Distribution Width 23 % (10-15); White Blood Count 14.4 10^3/uL (3.5-10.8)
[2022-02-03 05:12] LABS: Calcium 6.7 mg/dL (8.6-10.3); Magnesium 2.1 mg/dL (1.9-2.7); Potassium 3.5 mmol/L (3.5-5.0); eGFR CKD-EPI 19.1 (>60)
[2022-02-03] MEDS: Acetaminophen IV 1 GM/100ML 100 ML IV PRN (07:27)
[2022-02-03] MEDS: Pantoprazole VIAL 40 MG VIAL IV SCH (08:35)
[2022-02-03] MEDS: cefTRIAXone 1 gm/50 mL D5W 1 GM/50 ML BAG IV SCH ×2 (08:35→22:48)
[2022-02-03] MEDS ORDERED: Heparin 1,000 UNIT/ML 10 ml (10,000 UNITS) CATHLAB/DIALYSIS DIALYSIS ONE (10:30)
[2022-02-03] MEDS: Nystatin TOP POWDER 15 GM BTL TOPICAL SCH ×3 (10:47→22:49)
[2022-02-03 10:48] LABS: Hepatitis Be Antigen Negative (Negative)
[2022-02-03] MEDS: PHENYLEPHRINE DRIP IVPREMIX 50 MG/250 ML BAG IV SCH (11:27)
[2022-02-03] MEDS: Latanoprost 0.005% 2.5 ml BTL BOTH EYES SCH (22:49)
[2022-02-04] MEDS: Hydrocortisone INJ 100 MG/2ML 2 ML VIAL IV SCH ×2 (03:47→14:51)
[2022-02-04] MEDS: PHENYLEPHRINE DRIP IVPREMIX 50 MG/250 ML BAG IV SCH ×2 (04:57→16:55)
[2022-02-04 05:06] LABS: Hematocrit 28 % (42-52); Mean Corpuscular HGB Conc 32 g/dL (31-36); Mean Corpuscular Hemoglobin 25 pg (27-31); Mean Corpuscular Volume 79 fL (80-94); Mean Platelet Volume 11.4 fL (7.4-10.4); Platelet Count 5 10^3/uL (150-450); Red Blood Count 3.59 10^6 /uL (4.18-5.48); Red Cell Distribution Width 22 % (10-15); White Blood Count 15.7 10^3/uL (3.5-10.8)
[2022-02-04 05:34] LABS: Calcium 6.9 mg/dL (8.6-10.3); Phosphorus 4.9 mg/dL (2.5-5.0); Potassium 3.4 mmol/L (3.5-5.0)
[2022-02-04 07:27] LABS: Anisocytosis 1+; Toxic Granulation 1+
[2022-02-04 07:28] LABS: ABS Lymphocytes 0.5 10^3/ul (1.0-4.8); ABS Monocytes 0.8 10^3/ul (0-0.8); ABS Neutrophils 14.4 10^3/ul (1.5-7.7); ABS Nucleated RBC 0.1 10^3/ul; Lymphocyte % 3.2 %; Nucleated Red Blood Cells % 0.3
[2022-02-04] MEDS: Pantoprazole VIAL 40 MG VIAL IV SCH (08:48)
[2022-02-04] MEDS: cefTRIAXone 1 gm/50 mL D5W 1 GM/50 ML BAG IV SCH ×2 (08:49→19:58)
[2022-02-04] MEDS: Nystatin TOP POWDER 15 GM BTL TOPICAL SCH ×3 (08:49→19:58)
[2022-02-04] MEDS: Acetaminophen IV 1 GM/100ML 100 ML IV PRN (15:12)
[2022-02-04] MEDS ORDERED: Heparin 1,000 UNIT/ML 10 ml (10,000 UNITS) CATHLAB/DIALYSIS DIALYSIS ONE (16:00)
[2022-02-04] MEDS: Latanoprost 0.005% 2.5 ml BTL BOTH EYES SCH (19:59)
[2022-02-04 20:47] LABS: HIT ELISA 0.074 OD (<0.400); Heparin PF4 Antibody Interp Negative (Negative)
[2022-02-05] MEDS: Hydrocortisone INJ 100 MG/2ML 2 ML VIAL IV SCH ×2 (00:52→16:43)
[2022-02-05] MEDS: Dextran 70/Hypromellose Tears Eye Drops 15 ml BTL (for Artificials Tears) BOTH EYES PRN (00:56)
[2022-02-05 05:52] LABS: Hematocrit 28 % (42-52); Mean Corpuscular HGB Conc 32 g/dL (31-36); Mean Corpuscular Hemoglobin 25 pg (27-31); Mean Corpuscular Volume 79 fL (80-94); Mean Platelet Volume 11.8 fL (7.4-10.4); Platelet Count 7 10^3/uL (150-450); Red Blood Count 3.55 10^6 /uL (4.18-5.48); Red Cell Distribution Width 23 % (10-15); White Blood Count 17.8 10^3/uL (3.5-10.8)
[2022-02-05 06:28] LABS: Calcium 7.2 mg/dL (8.6-10.3); Phosphorus 4.7 mg/dL (2.5-5.0); Potassium 3.7 mmol/L (3.5-5.0); eGFR CKD-EPI 27.2 (>60)
[2022-02-05 07:33] LABS: Hypochromasia 2+; Microcytosis 2+
[2022-02-05 07:34] LABS: ABS Lymphocytes 0.4 10^3/ul (1.0-4.8); ABS Monocytes 0.8 10^3/ul (0-0.8); ABS Neutrophils 16.5 10^3/ul (1.5-7.7); ABS Nucleated RBC 0.1 10^3/ul; Anisocytosis 1+; Eosinophil % 0.1 %; Lymphocyte % 2.5 %; Nucleated Red Blood Cells % 0.3
[2022-02-05] MEDS: cefTRIAXone 1 gm/50 mL D5W 1 GM/50 ML BAG IV SCH ×2 (08:51→21:29)
[2022-02-05] MEDS: Pantoprazole VIAL 40 MG VIAL IV SCH (08:51)
[2022-02-05] MEDS: Nystatin TOP POWDER 15 GM BTL TOPICAL SCH ×3 (08:59→21:11)
[2022-02-05] MEDS: Acetaminophen IV 1 GM/100ML 100 ML IV PRN ×2 (11:29→18:11)
[2022-02-05] MEDS: PHENYLEPHRINE DRIP IVPREMIX 50 MG/250 ML BAG IV SCH (11:32)
[2022-02-05] MEDS ORDERED: Heparin 1,000 UNIT/ML 10 ml (10,000 UNITS) CATHLAB/DIALYSIS DIALYSIS ONE (17:00)
[2022-02-05] MEDS: Latanoprost 0.005% 2.5 ml BTL BOTH EYES SCH (21:11)
[2022-02-06] MEDS: Hydrocortisone INJ 100 MG/2ML 2 ML VIAL IV SCH ×2 (02:22→14:03)
[2022-02-06] MEDS: PHENYLEPHRINE DRIP IVPREMIX 50 MG/250 ML BAG IV SCH (03:01)
[2022-02-06 05:36] LABS: ABS Lymphocytes 0.3 10^3/ul (1.0-4.8); ABS Monocytes 0.7 10^3/ul (0-0.8); ABS Neutrophils 14.5 10^3/ul (1.5-7.7); Hematocrit 28 % (42-52); Hemoglobin 8.7 g/dL (14.0-18.0); Mean Corpuscular HGB Conc 32 g/dL (31-36); Mean Corpuscular Hemoglobin 25 pg (27-31); Mean Corpuscular Volume 79 fL (80-94); Mean Platelet Volume 10.6 fL (7.4-10.4); Nucleated Red Blood Cells % 0.2; Platelet Count 8 10^3/uL (150-450); Red Blood Count 3.48 10^6 /uL (4.18-5.48); Red Cell Distribution Width 23 % (10-15); White Blood Count 15.5 10^3/uL (3.5-10.8)
[2022-02-06 06:19] LABS: Calcium 7.2 mg/dL (8.6-10.3); Phosphorus 5.2 mg/dL (2.5-5.0); Potassium 3.9 mmol/L (3.5-5.0); eGFR CKD-EPI 26.5 (>60)
[2022-02-06] MEDS: Pantoprazole VIAL 40 MG VIAL IV SCH (08:45)
[2022-02-06] MEDS: cefTRIAXone 1 gm/50 mL D5W 1 GM/50 ML BAG IV SCH ×2 (08:46→21:46)
[2022-02-06] MEDS: Nystatin TOP POWDER 15 GM BTL TOPICAL SCH ×3 (08:46→20:02)
[2022-02-06] MEDS: Dextran 70/Hypromellose Tears Eye Drops 15 ml BTL (for Artificials Tears) BOTH EYES PRN (12:40)
[2022-02-06] MEDS: Dextran 70/Hypromellose Tears Eye Drops 15 ml BTL (for Artificials Tears) BOTH EYES SCH ×4 (16:45→22:54)
[2022-02-06] MEDS: Latanoprost 0.005% 2.5 ml BTL BOTH EYES SCH (20:02)
[2022-02-07] MEDS: Dextran 70/Hypromellose Tears Eye Drops 15 ml BTL (for Artificials Tears) BOTH EYES SCH ×12 (00:09→23:25)
[2022-02-07] MEDS: Hydrocortisone INJ 100 MG/2ML 2 ML VIAL IV SCH ×2 (01:12→14:42)
[2022-02-07 04:14] LABS: Hematocrit 26 % (42-52); Hemoglobin 8.5 g/dL (14.0-18.0); Mean Corpuscular HGB Conc 32 g/dL (31-36); Mean Corpuscular Hemoglobin 26 pg (27-31); Mean Corpuscular Volume 79 fL (80-94); Mean Platelet Volume 10.7 fL (7.4-10.4); Platelet Count 10 10^3/uL (150-450); Red Blood Count 3.31 10^6 /uL (4.18-5.48); Red Cell Distribution Width 23 % (10-15); White Blood Count 13.3 10^3/uL (3.5-10.8)
[2022-02-07 04:54] LABS: Calcium 7.1 mg/dL (8.6-10.3); Magnesium 2.1 mg/dL (1.9-2.7); Phosphorus 6.2 mg/dL (2.5-5.0); Potassium 3.8 mmol/L (3.5-5.0); eGFR CKD-EPI 20.9 (>60)
[2022-02-07 05:23] LABS: ABS Lymphocytes 0.3 10^3/ul (1.0-4.8); ABS Monocytes 0.5 10^3/ul (0-0.8); ABS Neutrophils 12.4 10^3/ul (1.5-7.7); Eosinophil % 0.1 %; Lymphocyte % 2.2 %; Nucleated Red Blood Cells % 0.1
[2022-02-07] MEDS: Pantoprazole VIAL 40 MG VIAL IV SCH (07:27)
[2022-02-07] MEDS: cefTRIAXone 1 gm/50 mL D5W 1 GM/50 ML BAG IV SCH ×2 (07:29→19:34)
[2022-02-07] MEDS: Nystatin TOP POWDER 15 GM BTL TOPICAL SCH ×3 (07:29→23:24)
[2022-02-07] MEDS: PHENYLEPHRINE DRIP IVPREMIX 50 MG/250 ML BAG IV SCH (09:02)
[2022-02-07] MEDS: Acetaminophen IV 1 GM/100ML 100 ML IV PRN (11:59)
[2022-02-07] MEDS: Latanoprost 0.005% 2.5 ml BTL BOTH EYES SCH (23:25)
[2022-02-08] MEDS: Dextran 70/Hypromellose Tears Eye Drops 15 ml BTL (for Artificials Tears) BOTH EYES SCH ×10 (00:29→20:49)
[2022-02-08] MEDS: Hydrocortisone INJ 100 MG/2ML 2 ML VIAL IV SCH ×2 (01:56→13:19)
[2022-02-08] MEDS: cefTRIAXone 1 gm/50 mL D5W 1 GM/50 ML BAG IV SCH ×2 (08:03→20:47)
[2022-02-08] MEDS: Pantoprazole VIAL 40 MG VIAL IV SCH (08:04)
[2022-02-08] MEDS: Nystatin TOP POWDER 15 GM BTL TOPICAL SCH ×2 (08:04→13:19)
[2022-02-08 08:32] LABS: Calcium 7.2 mg/dL (8.6-10.3); Magnesium 2.1 mg/dL (1.9-2.7); Potassium 3.8 mmol/L (3.5-5.0); eGFR CKD-EPI 18.7 (>60)
[2022-02-08 09:02] LABS: Hematocrit 26 % (42-52); Hemoglobin 8.3 g/dL (14.0-18.0); Mean Corpuscular HGB Conc 32 g/dL (31-36); Mean Corpuscular Hemoglobin 26 pg (27-31); Mean Corpuscular Volume 80 fL (80-94); Mean Platelet Volume 11.7 fL (7.4-10.4); Platelet Count 12 10^3/uL (150-450); Red Blood Count 3.25 10^6 /uL (4.18-5.48); Red Cell Distribution Width 23 % (10-15)
[2022-02-08] MEDS: Latanoprost 0.005% 2.5 ml BTL BOTH EYES SCH (20:50)
[2022-02-08] MEDS: PHENYLEPHRINE DRIP IVPREMIX 50 MG/250 ML BAG IV SCH (21:37)
[2022-02-09] MEDS: Nystatin TOP POWDER 15 GM BTL TOPICAL SCH ×4 (01:38→20:28)
[2022-02-09] MEDS: Hydrocortisone INJ 100 MG/2ML 2 ML VIAL IV SCH ×3 (01:38→20:26)
[2022-02-09] MEDS: Dextran 70/Hypromellose Tears Eye Drops 15 ml BTL (for Artificials Tears) BOTH EYES SCH ×10 (01:38→20:28)
[2022-02-09 05:10] LABS: Hematocrit 25 % (42-52); Hemoglobin 8.4 g/dL (14.0-18.0); Mean Corpuscular HGB Conc 33 g/dL (31-36); Mean Corpuscular Hemoglobin 27 pg (27-31); Mean Corpuscular Volume 81 fL (80-94); Mean Platelet Volume 10.7 fL (7.4-10.4); Platelet Count 19 10^3/uL (150-450); Red Blood Count 3.07 10^6 /uL (4.18-5.48); Red Cell Distribution Width 24 % (10-15); White Blood Count 9.4 10^3/uL (3.5-10.8)
[2022-02-09 05:34] LABS: ABS Basophils 0.1 10^3/ul (0-0.2); ABS Lymphocytes 0.2 10^3/ul (1.0-4.8); ABS Monocytes 0.4 10^3/ul (0-0.8); ABS Neutrophils 8.7 10^3/ul (1.5-7.7); Eosinophil % 0.1 %; Lymphocyte % 1.8 %; Nucleated Red Blood Cells % 0.2
[2022-02-09 05:35] LABS: Calcium 6.8 mg/dL (8.6-10.3); Magnesium 2.2 mg/dL (1.9-2.7); Potassium 3.8 mmol/L (3.5-5.0); eGFR CKD-EPI 16.9 (>60)
[2022-02-09] MEDS: cefTRIAXone 1 gm/50 mL D5W 1 GM/50 ML BAG IV SCH ×2 (09:14→20:27)
[2022-02-09] MEDS: Pantoprazole VIAL 40 MG VIAL IV SCH (09:15)
[2022-02-09] MEDS: PHENYLEPHRINE DRIP IVPREMIX 50 MG/250 ML BAG IV SCH (13:49)
[2022-02-09] MEDS: Latanoprost 0.005% 2.5 ml BTL BOTH EYES SCH (20:28)
[2022-02-10] MEDS: Dextran 70/Hypromellose Tears Eye Drops 15 ml BTL (for Artificials Tears) BOTH EYES SCH ×6 (00:10→21:12)
[2022-02-10 04:29] LABS: Hematocrit 25 % (42-52); Hemoglobin 8.3 g/dL (14.0-18.0); Mean Corpuscular HGB Conc 34 g/dL (31-36); Mean Corpuscular Hemoglobin 27 pg (27-31); Mean Corpuscular Volume 81 fL (80-94); Red Blood Count 3.04 10^6 /uL (4.18-5.48); Red Cell Distribution Width 24 % (10-15); White Blood Count 8.5 10^3/uL (3.5-10.8)
[2022-02-10 05:01] LABS: Calcium 6.6 mg/dL (8.6-10.3); Magnesium 2.1 mg/dL (1.9-2.7); Phosphorus 7.8 mg/dL (2.5-5.0); Potassium 3.5 mmol/L (3.5-5.0); eGFR CKD-EPI 17.3 (>60)
[2022-02-10 05:21] LABS: ABS Lymphocytes 0.2 10^3/ul (1.0-4.8); ABS Monocytes 0.4 10^3/ul (0-0.8); ABS Neutrophils 7.9 10^3/ul (1.5-7.7); Lymphocyte % 2.2 %; Mean Platelet Volume 10.3 fL (7.4-10.4); Nucleated Red Blood Cells % 0.3; Platelet Count 26 10^3/uL (150-450)
[2022-02-10 05:22] LABS: Basophilic Stippling 2+
[2022-02-10 05:23] LABS: Anisocytosis 1+; Microcytosis 2+
[2022-02-10] MEDS: KCL 20 MEQ/100 ML IVPREMIX 20 MEQ/100 ML BAG IV SCH ×2 (08:24→10:42)
[2022-02-10] MEDS: Nystatin TOP POWDER 15 GM BTL TOPICAL SCH ×3 (08:25→21:12)
[2022-02-10] MEDS: Hydrocortisone INJ 100 MG/2ML 2 ML VIAL IV SCH ×2 (08:25→21:10)
[2022-02-10] MEDS: Pantoprazole VIAL 40 MG VIAL IV SCH (08:25)
[2022-02-10] MEDS: cefTRIAXone 1 gm/50 mL D5W 1 GM/50 ML BAG IV SCH ×2 (09:40→21:10)
[2022-02-10] MEDS: D5W 1/2 NS 1000 ml BAG 1,000 ML IV SCH (09:41)
[2022-02-10] MEDS: Latanoprost 0.005% 2.5 ml BTL BOTH EYES SCH (21:11)
[2022-02-11] MEDS: Dextran 70/Hypromellose Tears Eye Drops 15 ml BTL (for Artificials Tears) BOTH EYES SCH ×6 (01:23→19:42)
[2022-02-11] MEDS: D5W 1/2 NS 1000 ml BAG 1,000 ML IV SCH ×2 (04:14→23:45)
[2022-02-11 05:47] LABS: Hematocrit 26 % (42-52); Hemoglobin 8.5 g/dL (14.0-18.0); Mean Corpuscular HGB Conc 33 g/dL (31-36); Mean Corpuscular Hemoglobin 28 pg (27-31); Mean Corpuscular Volume 83 fL (80-94); Red Blood Count 3.08 10^6 /uL (4.18-5.48); Red Cell Distribution Width 25 % (10-15); White Blood Count 10.4 10^3/uL (3.5-10.8)
[2022-02-11 05:57] LABS: Calcium 6.6 mg/dL (8.6-10.3); Phosphorus 7.7 mg/dL (2.5-5.0); eGFR CKD-EPI 18.8 (>60)
[2022-02-11] MEDS: PHENYLEPHRINE DRIP IVPREMIX 50 MG/250 ML BAG IV SCH ×3 (09:14→13:12)
[2022-02-11] MEDS: Pantoprazole VIAL 40 MG VIAL IV SCH (09:18)
[2022-02-11] MEDS: Hydrocortisone INJ 100 MG/2ML 2 ML VIAL IV SCH ×2 (09:18→19:42)
[2022-02-11] MEDS: Nystatin TOP POWDER 15 GM BTL TOPICAL SCH ×3 (09:18→19:43)
[2022-02-11 09:41] LABS: ABS Lymphocytes 0.2 10^3/ul (1.0-4.8); ABS Monocytes 0.4 10^3/ul (0-0.8); ABS Neutrophils 9.9 10^3/ul (1.5-7.7); Lymphocyte % 1.5 %; Mean Platelet Volume 10.1 fL (7.4-10.4); Nucleated Red Blood Cells % 0.1; Platelet Count 35 10^3/uL (150-450)
[2022-02-11] MEDS: Latanoprost 0.005% 2.5 ml BTL BOTH EYES SCH (19:43)
[2022-02-12] MEDS: Dextran 70/Hypromellose Tears Eye Drops 15 ml BTL (for Artificials Tears) BOTH EYES SCH ×6 (00:22→20:13)
[2022-02-12 06:15] LABS: ABS Lymphocytes 0.2 10^3/ul (1.0-4.8); ABS Monocytes 0.3 10^3/ul (0-0.8); ABS Neutrophils 7.6 10^3/ul (1.5-7.7); Eosinophil % 0.1 %; Hematocrit 24 % (42-52); Hemoglobin 7.9 g/dL (14.0-18.0); Lymphocyte % 2.1 %; Mean Corpuscular HGB Conc 33 g/dL (31-36); Mean Corpuscular Hemoglobin 28 pg (27-31); Mean Corpuscular Volume 83 fL (80-94); Mean Platelet Volume 10.2 fL (7.4-10.4); Nucleated Red Blood Cells % 0.3; Platelet Count 50 10^3/uL (150-450); Red Blood Count 2.84 10^6 /uL (4.18-5.48); Red Cell Distribution Width 25 % (10-15); White Blood Count 8.1 10^3/uL (3.5-10.8)
[2022-02-12 06:39] LABS: Calcium 6.7 mg/dL (8.6-10.3); Magnesium 1.9 mg/dL (1.9-2.7); Phosphorus 7.1 mg/dL (2.5-5.0); eGFR CKD-EPI 21.5 (>60)
[2022-02-12] MEDS: Pantoprazole VIAL 40 MG VIAL IV SCH (08:38)
[2022-02-12] MEDS: Hydrocortisone INJ 100 MG/2ML 2 ML VIAL IV SCH ×2 (08:38→20:13)
[2022-02-12] MEDS: Nystatin TOP POWDER 15 GM BTL TOPICAL SCH ×2 (08:39→16:08)
[2022-02-12] MEDS: PHENYLEPHRINE DRIP IVPREMIX 50 MG/250 ML BAG IV SCH ×2 (14:00→23:40)
[2022-02-12] MEDS: D5W 1/2 NS 1000 ml BAG 1,000 ML IV SCH (18:29)
[2022-02-12] MEDS: Latanoprost 0.005% 2.5 ml BTL BOTH EYES SCH (20:14)
[2022-02-13] MEDS: PHENYLEPHRINE DRIP IVPREMIX 50 MG/250 ML BAG IV SCH ×16 (00:25→07:34)
[2022-02-13] MEDS: Dextran 70/Hypromellose Tears Eye Drops 15 ml BTL (for Artificials Tears) BOTH EYES SCH ×2 (00:30→05:18)
[2022-02-13] MEDS ORDERED: NS 0.45% 1000 ml BAG 1,000 ML IV SCH (01:00)
[2022-02-13 03:43] LABS: Hematocrit 27 % (42-52); Hemoglobin 7.9 g/dL (14.0-18.0); Red Blood Count 3.08 10^6 /uL (4.18-5.48); White Blood Count 12.6 10^3/uL (3.5-10.8)
[2022-02-13 03:54] LABS: Calcium 7.4 mg/dL (8.6-10.3); Phosphorus 8.9 mg/dL (2.5-5.0); Potassium 4.6 mmol/L (3.5-5.0); eGFR CKD-EPI 21.5 (>60)
[2022-02-13 04:30] LABS: ABS Lymphocytes 0.2 10^3/ul (1.0-4.8); ABS Monocytes 0.7 10^3/ul (0-0.8); ABS Neutrophils 11.6 10^3/ul (1.5-7.7); ABS Nucleated RBC 0.1 10^3/ul; Lymphocyte % 1.5 %; Mean Corpuscular HGB Conc 30 g/dL (31-36); Mean Corpuscular Hemoglobin 26 pg (27-31); Mean Corpuscular Volume 86 fL (80-94); Mean Platelet Volume 9.9 fL (7.4-10.4); Nucleated Red Blood Cells % 0.5; Platelet Count 90 10^3/uL (150-450); Red Cell Distribution Width 26 % (10-15)
[2022-02-13 04:33] LABS: Anisocytosis 2+; Basophilic Stippling 2+
[2022-02-13 04:35] LABS: Microcytosis 1+
[2022-02-13] MEDS ORDERED: Norepinephrine 16MCG/ML BAGD5W 4,000 MCG/250 ML BAG IV ONE (05:28)
[2022-02-13] MEDS: Norepinephrine 16MCG/ML BAGD5W 4,000 MCG/250 ML BAG IV SCH ×2 (05:45→05:48)
[2022-02-13] MEDS ORDERED: Norepinephrine 16MCG/ML BAG NS 4,000 MCG/250 ML BAG IV SCH (06:00)
[2022-02-13 08:08] VITALS: BP 29/20
== END 2022-02-13 07:31 | disposition expired | DRG 871 ==
LOC: ED 07:07 → SUATTDRO 09:51 → EDHOLD 09:51 → ICU 11:00
PROVIDERS: ADMIT Internal Medicine; ATTEND Internal Medicine